=== PATIENT | male | born 1980 | race Caucasian/White ===

== ENCOUNTER 2018-07-14 10:44 | Emergency (ER) | payer MEDICARE, OTHER ==
--- NOTE | 2018-07-14 11:17 | ER Document Report ---
ED Medical Screen (RME) - General Chief Complaint: Anxiety Stated Complaint: ANXIETY Time Seen by Provider: 07/14/18 11:15 Mode of Arrival: Ambulatory Information source: Patient, Relative Notes: This is a 37-year-old man with a history of PTSD, depression who was brought into the emergency room severely depressed. Patient is crying in triage. He is accompanied by his who states that he was started on medicines in the last 2 weeks but he has gotten significantly worse. TRAVEL OUTSIDE OF THE U.S. IN LAST 30 DAYS: No - Related Data Allergies/Adverse Reactions: codeine Allergy (Verified 07/14/18 11:13) Physical Exam - Vital signs Vitals: Temp Pulse Resp BP Pulse Ox 98 F 81 18 125/86 H 98 07/14/18 10:56 07/14/18 10:56 07/14/18 10:56 07/14/18 10:56 07/14/18 10:56 Course - Vital Signs Vital signs: Temp Pulse Resp BP Pulse Ox 98 F 81 18 125/86 H 98 07/14/18 10:56 07/14/18 10:56 07/14/18 10:56 07/14/18 10:56 07/14/18 10:56
[2018-07-14 11:54] LABS: ABSOLUTE LYMPHOCYTES (AUTO) 1.5 10^3/uL (0.5-4.7); ABSOLUTE MONOCYTES (AUTO) 0.4 10^3/uL (0.1-1.4); ABSOLUTE NEUT (AUTO) 5.6 10^3/uL (1.7-8.2); BASOPHILS % (AUTO) 0.3 % (0-2); EOSINOPHILS % (AUTO) 0.3 % (0-6); HEMOGLOBIN 16.4 g/dL (13.5-17.0); LYMPHOCYTES % (AUTO) 20.1 % (13-45); MEAN CORPUSCULAR HEMOGLOBIN 29.3 pg (27.0-33.4); MEAN CORPUSCULAR HGB CONC 34.1 g/dL (32.0-36.0); MEAN CORPUSCULAR VOLUME 86 fl (80-97); MONOCYTES % (AUTO) 5.2 % (3-13); PLATELET COUNT 239 10^3/uL (150-450); RED BLOOD COUNT 5.59 10^6/uL (4.35-5.55); RED CELL DISTRIBUTION WIDTH 13.3 % (11.5-14.0); SEGMENTED NEUTROPHILS % (AUTO) 74.1 % (42-78); TOTAL CELLS COUNTED % (AUTO) 100 %; WHITE BLOOD COUNT 7.6 10^3/uL (4.0-10.5)
[2018-07-14 11:56] LABS: APPEARANCE,URINE CLEAR; BILIRUBIN,URINE NEGATIVE (NEGATIVE); COLOR,URINE STRAW; GLUCOSE, URINE NEGATIVE (NEGATIVE); KETONES,URINE 20 mg/dL (NEGATIVE); LEUKOCYTE ESTERASE,URINE NEGATIVE (NEGATIVE); NITRITE,URINE NEGATIVE (NEGATIVE); PROTEIN,URINE NEGATIVE (NEGATIVE); URINE SPECIFIC GRAVITY 1.004; UROBILINOGEN,URINE NEGATIVE mg/dL (<2.0)
[2018-07-14 12:15] LABS: URINE AMPHETAMINES SCREEN NEGATIVE; URINE BARBITURATES SCREEN NEGATIVE; URINE BENZODIAZEPINES SCREEN NEGATIVE; URINE COCAINE SCREEN NEGATIVE; URINE MARIJUANA (THC) SCREEN UNCONFIRMED POSITIVE; URINE METHADONE SCREEN NEGATIVE; URINE PHENCYCLIDINE SCREEN NEGATIVE
[2018-07-14 12:18] LABS: ALANINE AMINOTRANSFERASE 21 U/L (21-72); ALBUMIN 5.1 g/dL (3.5-5.0); ALKALINE PHOSPHATASE 112 U/L (38-126); ANION GAP 11 (5-19); ASPARTATE AMINO TRANSFERASE 19 U/L (17-59); BILIRUBIN,DIRECT 0.3 mg/dL (0.0-0.4); BILIRUBIN,TOTAL 0.8 mg/dL (0.2-1.3); BLOOD UREA NITROGEN 12 mg/dL (7-20); CARBON DIOXIDE 25 mmol/L (22-30); CHLORIDE 106 mmol/L (98-107); GLUCOSE 98 mg/dL (75-110); POTASSIUM 4.6 mmol/L (3.6-5.0); SODIUM 141.8 mmol/L (137-145); TOTAL PROTEIN 7.6 g/dL (6.3-8.2)
--- NOTE | 2018-07-14 12:23 | ER Document Report ---
Addendum entered and electronically signed by HARSHA HERRERA LCSWA 07/15/18 09:58: Discharge - Discharge Clinical Impression: Suicidal ideation, PTSD (post-traumatic stress disorder) Condition: Stable Disposition: HOME, SELF-CARE Instructions: Anxiety ([facility]) Additional Instructions: You have been evaluated both medical and behavioral health teams have been deemed appropriate for discharge. Medication changes have been conducted. Please discontinue your home medications of Adderall and Marinol. You have been provided prescriptions for Effexor 37.5 mg twice daily, BuSpar 10 mg twice daily, Zyprexa 2.5 mg twice daily and clonidine 0.1 mg nightly; please take as directed. You are recommended to continue outpatient therapeutic services with the local [place] and medication management with [facility]. Post-Traumatic Stress Disorder You seem to have post-traumatic stress disorder (PTSD). PTSD can cause chronic anxiety, sleeping problems, social withdrawal, and drug abuse. It can occur following a traumatic personal experience such as an accident, rape, assault, or of a loved one, or after experiencing a war or natural disaster. Symptoms may be delayed for days or even years. Emotional numbing, the inability to express grief, is usually the earliest sign. There may be apathy or agitation, aggression, and inability to perform ordinary tasks. Often there are frightening nightmares and sudden, intruding memories of the trauma. Panic attacks and feelings of guilt are common. Alcohol and drug use make post- traumatic stress symptoms worse. Medication may be temporarily necessary to combat anxiety, panic attacks, and depression. Medicine should not be considered a "cure." You must deal with the trauma and prepare to go on. Group therapy is often helpful. This helps you "talk through" the problem with others who share your symptoms. We can provide you with an appropriate referral. AT ANY TIME, IF YOUR SYMPTOMS CHANGE SIGNIFICANTLY OR WORSEN OR YOU DEVELOP NEW SYMPTOMS, RETURN TO THE EMERGENCY DEPARTMENT IMMEDIATELY FOR RE-EVALUATION. Referrals: [facility] [Outside] - Follow up as needed [facility] [Provider Group] - Follow up in 3-5 days [facility] [Provider Group] - Follow up in 3-5 days Original Note: ED General - General Mode of Arrival: Ambulatory TRAVEL OUTSIDE OF THE U.S. IN LAST 30 DAYS: No <VENKAT GREEN - Last Filed: 07/14/18 20:01> <HARSHA HERRERA - Last Filed: 07/15/18 09:52> <TIFFANIE FULTON - Last Filed: 07/15/18 10:15> - General Chief Complaint: Anxiety Stated Complaint: ANXIETY Time Seen by Provider: 07/14/18 11:15 Primary Care Provider: [facility] [Provider Group] - Follow up in 3-5 days [facility] [Provider Group] - Follow up in 3-5 days [facility] [Outside] - Follow up as needed - [facility] Notes: 37-year-old male presents ED for evaluation of suicidal ideation, patient appears to be distraught. Patient does not have a suicidal plan, denies any homicidal ideation. is at bedside. Does appear to be upset at this time. Awaiting for mental health evaluation. Denies fevers, chills, chest pain,pal pitations, shortness of breath, dyspnea, nausea, vomiting, diarrhea, abdominal pain, hematuria,blurred vision, double vision, loss of vision, speech changes, LH, dizziness, syncope, headaches, neck pain, weakness, bowel or bladder dysfunction, saddle anesthesia, numbness or tingling in bilateral upper or lower extremities equally, muscle paralysis, weakness in bilateral upper or lower extremities equally or rash. (VENKAT GREEN) - Related Data Allergies/Adverse Reactions: codeine Allergy (Verified 07/14/18 11:13) Past Medical History - General Information source: Patient, Relative - Social History Smoking Status: Never Smoker Chew tobacco use (# tins/day): Yes Frequency of alcohol use: None Drug Abuse: Marijuana Family History: Reviewed & Not Pertinent Patient has suicidal ideation: No Patient has homicidal ideation: No Renal/ Medical History: Denies: Hx Peritoneal Dialysis Psychiatric Medical History: Reports: Hx Depression Past Surgical History: Reports: Hx Genitourinary Surgery - vasectomy, Hx Tonsillectomy <VENKAT GREEN - Last Filed: 07/14/18 20:01> Review of Systems - Review of Systems Constitutional: No symptoms reported EENT: No symptoms reported Cardiovascular: No symptoms reported Respiratory: No symptoms reported Gastrointestinal: No symptoms reported Genitourinary: No symptoms reported Male Genitourinary: No symptoms reported Musculoskeletal: No symptoms reported Skin: No symptoms reported Hematologic/Lymphatic: No symptoms reported Neurological/Psychological: Suicidal ideation <VENKAT GREEN - Last Filed: 07/14/18 20:01> Physical Exam <VENKAT GREEN - Last Filed: 07/14/18 20:01> - Vital signs Vitals: Temp Pulse Resp BP Pulse Ox 98 F 81 18 125/86 H 98 07/14/18 10:56 07/14/18 10:56 07/14/18 10:56 07/14/18 10:56 07/14/18 10:56 - Notes Notes: PHYSICAL EXAMINATION: GENERAL: Well-appearing, well-nourished and in no acute distress. HEAD: Atraumatic, normocephalic. EYES: Pupils equal round and reactive to light, extraocular movements intact, sclera anicteric, conjunctiva are normal. ENT: Nares patent, oropharynx clear without exudates. Moist mucous membranes. NECK: Normal range of motion, supple without lymphadenopathy LUNGS: Breath sounds clear to auscultation bilaterally and equal. No wheezes rales or rhonchi. HEART: Regular rate and rhythm without murmurs ABDOMEN: Soft, nontender, nondistended abdomen. No guarding, no rebound. No masses appreciated. Musculoskeletal: Normal range of motion, no pitting or edema. No cyanosis. NEUROLOGICAL: Cranial nerves grossly intact. Normal speech, normal gait. Ria l sensory, motor exams PSYCH: She is emotional, crying, agressive SKIN: Warm, Dry, normal turgor, no rashes or lesions noted. (VENKAT GREEN) Course - Laboratory Result Diagrams: 07/14/18 11:32 07/14/18 11:32 <VENKAT GREEN - Last Filed: 07/14/18 20:01> - Laboratory Result Diagrams: 07/14/18 11:32 07/14/18 11:32 <TIFFANIE FULTON - Last Filed: 07/15/18 10:15> - Re-evaluation Re-evalutation: 07/14/18 20:03 Febrile vitals stable and patient is noticeably upset. CBC negative for leukocytosis or anemia, CMP negative for hepatic or renal dysfunction, urinalysis unremarkable, patient does show a positive for marijuana, tox screen otherwise unremarkable. Mental health at bedside, patient will be asked to see for suicidal ideation. Patient agreeable with this plan of care. On reevaluation patient does appear to be calmer, no acute distress. Multiple reevaluation patient appears to be stable. Disposition of CARINE clay at 1930 (VENKAT GREEN) - Vital Signs Vital signs: Temp Pulse Resp BP Pulse Ox 98.3 F 74 18 129/73 H 100 07/15/18 06:39 07/15/18 06:39 07/15/18 06:39 07/15/18 06:39 07/15/18 06:39 - Laboratory Laboratory results interpreted by me: 07/14/18 07/14/18 07/14/18 11:32 11:32 11:32 RBC 5.59 H Albumin 5.1 H Urine Ketones 20 H Salicylates < 1.0 L Acetaminophen < 10 L Discharge <VENKAT GREEN - Last Filed: 07/14/18 20:01> <HARSHA HERRERA - Last Filed: 07/15/18 09:52> <TIFFANIE FULTON - Last Filed: 07/15/18 10:15> - Discharge Clinical Impression: Suicidal ideation, PTSD (post-traumatic stress disorder) Condition: Stable Disposition: HOME, SELF-CARE Instructions: Anxiety ([facility]) Additional Instructions: You have been evaluated both medical and behavioral health teams have been deeme d appropriate for discharge. Medication changes have been conducted. Please discontinue your home medications of Adderall and Marinol. You have been provided prescriptions for Effexor 37.5 mg twice daily, BuSpar 10 mg twice daily, Zyprexa 2.5 mg twice daily and clonidine 0.1 mg nightly; please take as directed. You are recommended to continue outpatient [facility] the [facility] and [facility] with [facility]. Post-Traumatic Stress Disorder You seem to have post-traumatic stress disorder (PTSD). PTSD can cause chronic anxiety, sleeping problems, social withdrawal, and drug abuse. It can occur following a traumatic personal experience such as an accident, rape, as sault, or of a loved one, or after experiencing a war or natural disaster. Symptoms may be delayed for days or even years. Emotional numbing, the inability to express grief, is usually the earliest sign. There may be apathy or agitation, aggression, and inability to perform ordinary tasks. Often there are frightening nightmares and sudden, intruding memories of the trauma. Panic attacks and feelings of guilt are common. Alcohol and drug use make post- traumatic stress symptoms worse. Medication may be temporarily necessary to combat anxiety, panic attacks, and depression. Medicine should not be considered a "cure." You must deal with the trauma and prepare to go on. Group therapy is often helpful. This helps you "talk through" the problem with others who share your symptoms. We can provide you with an appropriate referral. AT ANY TIME, IF YOUR SYMPTOMS CHANGE SIGNIFICANTLY OR WORSEN OR YOU DEVELOP NEW SYMPTOMS, RETURN TO THE EMERGENCY DEPARTMENT IMMEDIATELY FOR RE-EVALUATION. Prescriptions: Clonidine HCl [Catapres 0.1 mg Tablet] 0.1 mg PO QHS #7 tablet Buspirone HCl [Buspar 10 mg Tablet] 10 mg PO BID #14 tablet Olanzapine [Zyprexa 2.5 Mg Tablet] 2.5 mg PO BID #14 tablet Venlafaxine HCl ER [Effexor Xr 37.5 mg Cap.sr] 37.5 mg PO BID #14 cap.sr.24h Referrals: [facility] [Provider Group] - Follow up in 3-5 days [facility] [Provider Group] - Follow up in 3-5 days [facility] [Outside] - Follow up as needed
[2018-07-14 12:24] LABS: ACETAMINOPHEN < 10 ug/mL (10-30); ALCOHOL < 10 mg/dL (NONE DETECTED); SALICYLATE < 1.0 mg/dL (2.0-20.0)
[2018-07-14] MEDS ORDERED: VENLAFAXINE HCL 37.5 MG CAP.SR.24H PO SCH (14:22)
[2018-07-14] MEDS ORDERED: OLANZAPINE 2.5 MG TABLET PO SCH (14:23)
[2018-07-14] MEDS: BUSPIRONE HCL 10 MG TABLET PO SCH ×2 (14:35→17:06)
--- NOTE | 2018-07-14 15:13 | PSYCHOLOGICAL NOTE ---
Psych Note - Psych Note Date seen by psych provider: 07/14/18 Time seen by psych provider: 13:10 Psych Note: Reason for Consult: Anxiety Patient's , Kristen, at bedside per patient's request This is a 37-year-old man with a history of PTSD, depression who was brought into the emergency room severely depressed. Patient is crying in triage. He is accompanied by his who states that he was started on medicines in the last 2 weeks but he has gotten significantly worse. Upon entering the room clinician notes patient's is crying. When asked what happened, she reports she has been trying to keep it together but the patient has been saying mean things to her. Patient calmly denies this with no emotion. She discloses that the patient just informed her that when they leave the hospital he will be leaving [place] for good. Patient is then noted to state "I asked if he wanted to come to." She disclosed that they have been for 13 years. She states that she knows that the patient does not want to leave her that he just wants to leave however he does not seem to understand that no matter where he goes he is going to feel the same way. Patient discloses that he was recently started on Adderall and Marinol for his PTSD. He reports that he feels he has gotten much worse and has been crying nonstop. When asked about any other substance use, he reports he uses marijuana; last use last night. He stated he wants to "leave [place];" when asked, he paused and then stated "because I don't like the rainy weather." Patient disclosed that he "knows" that his "friends, doctors, and... people are out to get me... they are all in on it...I don't trust medical doctors." He reports he does not want to be on any medication. Patient is alert and orientated to person, place, time and circumstance. Patient reports mood is dysphoric and is tearful however affect is flat. Patient has good eye contact however it appears as if the patient is looking right through clinician rather than at clinician. Patient denies suicidal and homicidal ideation. Patient vocalizes delusions of paranoia. Thought content is organized and linear. Intellectual abilities appear to be within the average range. Attention and concentration are fair. Insight, judgment, impulse control are poor. Clinician spoke with patient's to explain IVC process. Patient attempted to leave and security was called. Patient became very defensive started to posture aggressively and told security it would take all of them to take him down. Clinician was able to continue speaking with patient; he ultimately calmed and complied with requests. Patient's is very tearful and reports she feels that they have been taken advantage of and that he is going to be forced to take medications he does not want to take. Clinician explained concerns of patient's presentation and needing to ensure the patient's safety and that of others. She reports that staying will make him worse and that he will have to come home at some point to her and he will be upset about the events. She reports she feels he is not a danger to himself; "He would never do anything to hurt himself...I know that is what everyone says, but he wont." Medication recommendations per [facility] s contracted psychiatrist Dr. Angelo REINOSO are as follows please stop all medications of Adderall and Marinol please start Effexor 37.5 mg twice daily BuSpar 10 mg twice daily Zyprexa 2.5 mg twice daily clonidine 0.1 mg nightly 309.81 (F43.10) posttraumatic stress disorder per history provided by patient 311 (F32.9) unspecified depressive disorder Impression\\plan: Patient is recommended for IVC. Patient is presenting tearful with flat affect. Patient is disclosing thoughts of paranoia and demonstrating poor insight and judgment. Patient's eye contact is poor and it appears as if the patient is looking right through clinician when talking. Upon entering the room clinician notes patient's is crying. When asked what happened she reports that the patient just randomly stated that upon discharge from the hospital he will be leaving [place] for good. Patient is noted to have recently started medications of Adderall and Marinol within the last 2 weeks. Medication recommendations have been provided. Patient will be re-evaluated. Dr. Carpenter was consulted and the care management this patient; attending physicians in agreement with recommendations and disposition.
--- NOTE | 2018-07-14 21:06 | EKG REPORT ---
SEVERITY:- NORMAL ECG - SINUS RHYTHM : Confirmed by: Oly Gurrola MD 14-Jul-2018 21:05:54
[2018-07-14] MEDS: OLANZAPINE 2.5 MG TABLET PO SCH (21:20)
[2018-07-14] MEDS: VENLAFAXINE HCL 37.5 MG CAP.SR.24H PO SCH (21:20)
--- NOTE | 2018-07-15 10:20 | ER Document Report ---
Doctor's Note Notes: 07/15/18 10:19 Rounds: Chart reviewed and patient interviewed. Patient being evaluated for PTSD and depression and suicidal ideation. Patient says he is feeling better than when he came in last night. Vital signs are all normal. Lab studies were normal with the exception of being positive for marijuana on drug screen. Patient appears to be medically stable for transfer or discharge. Zeny Schaffer MD
[2018-07-15] MEDS: BUSPIRONE HCL 10 MG TABLET PO SCH (10:53)
[2018-07-15] MEDS: OLANZAPINE 2.5 MG TABLET PO SCH (10:54)
[2018-07-15] MEDS: VENLAFAXINE HCL 37.5 MG CAP.SR.24H PO SCH (10:54)
[2018-07-15 10:59] VITALS: BP 122/67
--- NOTE | 2018-07-15 14:19 | PSYCHOLOGICAL NOTE ---
Psych Note - Psych Note Date seen by psych provider: 07/15/18 Time seen by psych provider: 09:00 Psych Note: Reason for Consult: Anxiety Patient's , Kristen, at bedside per patient's request This is a 37-year-old man with a history of PTSD, depression who was brought into the emergency room severely depressed. Patient is crying in triage. He is accompanied by his who states that he was started on medicines in the last 2 weeks but he has gotten significantly worse. Check in conducted with patient Patient's mood is euthymic with congruent affect as evidenced by smiling and engaging with clinician. Patient sitting up in the bed sitting crosslegged, has congruent affect to conversations, and openly discusses his thoughts and feelings. Patient makes good eye contact and conversational speech is within normal rate tone and prosody (ie patient is not longer presenting flat). He states that he feels much more calm today and understands why he had to stay; "I knew it was going to happen when I came in...I needed it...I was just...I don't know, just overwhelming." He reports that he was just very concerned about security and thought he would be treated poorly. He discloses he is actively engaged with the local [place] [facility] in both individual and group therapy. He reports that he is not somebody who would ever harm himself and reports that that is a topic of discussion multiple times with in his therapy. He states that he has seen the statistics that if you harm yourself your loved ones have a higher chance of harming themselves. He discloses he would never want his children to do something like that. Patient discloses that he knows that yesterday he had stated that he wanted to leave [place] but reports that this has been a conversation is had with his multiple times in the past however he feels that she is not really hearing him. 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 HE confirms he has a strong support system with both his , parents (his parent's drove overnight from [place] when being notified the patient was in the hospital), children, and friends. He reports he has little interest in social media and states if he wants to keep up with a friend he will ups driver the phone and call. Clinician conducted psychoeducation on the importance of conducted self evaluations on possible isolating and understanding symptoms of PTSD to ensure you are actively engaging in therapeutic services to help with copping and understanding triggers. Patient agrees to allow his to control the home weapon so he does not have access while going through medication changes. Patient confirms he will continue engaging with both individual and group therapeutic services and to return immediately if he feels mood lability, irritability, or numbness of motion returns. Medication recommendations per [facility] s contracted psychiatrist Dr. Angelo REINOSO are as follows please stop all medications of Adderall and Marinol please start Effexor 37.5 mg twice daily BuSpar 10 mg twice daily Zyprexa 2.5 mg twice daily clonidine 0.1 mg nightly 309.81 (F43.10) posttraumatic stress disorder per history provided by patient 311 (F32.9) unspecified depressive disorder Impression\\plan: Patient is recommended for rescind of IVC and is cleared from acute psychiatric services. Medication adjustments have been conducted and patient's presentation has greatly improved. Currently it is believed the patient's previous medications caused an interaction which resulted in mood lability increased depression and some emotional numbness. Patient actively engaged with clinician as evidenced by discussing triggers, symptoms, and coping skills. Patient demonstrated forward thinking when discussing plans for the future i.e. 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 Patient has a strong support network with family as evidenced by both patient's mother and father driving in from [place] when finding out the patient was in the hospital. All agree to be part of patient's plan of care to ensure the does not have access to medications weapons and follows through with mental health recommendations. Patient is recommended to continue therapeutic services in the form of both individual and group therapy through the [place] and to receive medication management through [facility]. Both the [place] and [facility] have been contacted by this behavior health team for continuity of care and to notify change of medications. Dr. Carpenter was consulted and the care management this patient; attending physicians in agreement with recommendations and disposition.
== END 2018-07-15 10:59 | disposition home or self-care (01) ==
LOC: ER 10:44
DX: F41.9 Anxiety disorder, unspecified (principal); F43.10 Post-traumatic stress disorder, unspecified; F32.9 Major depressive disorder, single episode, unspecified; Z88.6 Allergy status to analgesic agent; R45.851 Suicidal ideations
CPT/HCPCS: 93005; 99284; 36415; 80307 ×4; 84443; 85025; 80053; 81001; 93010; A9270 ×6; J3490

== ENCOUNTER 2018-07-17 12:02 | Emergency (ER) | payer MEDICARE, OTHER ==
--- NOTE | 2018-07-17 12:37 | ER Document Report ---
ED Medical Screen (RME) - General Chief Complaint: Suicidal Ideation Stated Complaint: PSYCH EVAL Time Seen by Provider: 07/17/18 12:33 Notes: 37-year-old male patient with depression and PTSD returns to the emergency room complaining of worsening of suicidal ideation. He was seen here on 07/14/2018, and discharged home medication changes on 07/15/2018. I have greeted and performed a rapid initial assessment of this patient. A comprehensive ED assessment and evaluation of the patient, analysis of test results and completion of the medical decision making process will be conducted by additional ED providers. TRAVEL OUTSIDE OF THE [place] IN LAST 30 DAYS: No - Related Data Allergies/Adverse Reactions: codeine Allergy (Verified 07/17/18 12:18) Past Medical History Renal/ Medical History: Denies: Hx Peritoneal Dialysis Psychiatric Medical History: Reports: Hx Depression Past Surgical History: Reports: Hx Genitourinary Surgery - vasectomy, Hx Tonsillectomy Physical Exam - Vital signs Vitals: Temp Pulse Resp BP Pulse Ox 98.5 F 89 18 133/92 H 99 07/17/18 12:28 07/17/18 12:28 07/17/18 12:28 07/17/18 12:28 07/17/18 12:28 Course - Vital Signs Vital signs: Temp Pulse Resp BP Pulse Ox 98.5 F 89 18 133/92 H 99 07/17/18 12:28 07/17/18 12:28 07/17/18 12:28 07/17/18 12:28 07/17/18 12:28
[2018-07-17 13:01] LABS: ABSOLUTE EOSINOPHILS # (AUTO) 0.1 10^3/uL (0.0-0.6); ABSOLUTE LYMPHOCYTES (AUTO) 1.5 10^3/uL (0.5-4.7); ABSOLUTE MONOCYTES (AUTO) 0.4 10^3/uL (0.1-1.4); ABSOLUTE NEUT (AUTO) 5.3 10^3/uL (1.7-8.2); BASOPHILS % (AUTO) 0.4 % (0-2); EOSINOPHILS % (AUTO) 0.9 % (0-6); HEMATOCRIT 47.4 % (37.9-51.0); HEMOGLOBIN 16.1 g/dL (13.5-17.0); MEAN CORPUSCULAR HEMOGLOBIN 29.1 pg (27.0-33.4); MEAN CORPUSCULAR HGB CONC 33.9 g/dL (32.0-36.0); MEAN CORPUSCULAR VOLUME 86 fl (80-97); MONOCYTES % (AUTO) 4.9 % (3-13); PLATELET COUNT 230 10^3/uL (150-450); RED BLOOD COUNT 5.51 10^6/uL (4.35-5.55); RED CELL DISTRIBUTION WIDTH 13.5 % (11.5-14.0); SEGMENTED NEUTROPHILS % (AUTO) 72.8 % (42-78); TOTAL CELLS COUNTED % (AUTO) 100 %; WHITE BLOOD COUNT 7.2 10^3/uL (4.0-10.5)
[2018-07-17 13:07] LABS: APPEARANCE,URINE CLEAR; BILIRUBIN,URINE NEGATIVE (NEGATIVE); COLOR,URINE YELLOW; GLUCOSE, URINE NEGATIVE (NEGATIVE); KETONES,URINE NEGATIVE (NEGATIVE); LEUKOCYTE ESTERASE,URINE NEGATIVE (NEGATIVE); NITRITE,URINE NEGATIVE (NEGATIVE); PROTEIN,URINE NEGATIVE (NEGATIVE); URINE SPECIFIC GRAVITY 1.008; UROBILINOGEN,URINE NEGATIVE mg/dL (<2.0)
[2018-07-17 13:21] LABS: ALANINE AMINOTRANSFERASE 27 U/L (21-72); ALKALINE PHOSPHATASE 106 U/L (38-126); ANION GAP 8 (5-19); ASPARTATE AMINO TRANSFERASE 21 U/L (17-59); BILIRUBIN,DIRECT 0.2 mg/dL (0.0-0.4); BILIRUBIN,TOTAL 0.4 mg/dL (0.2-1.3); BLOOD UREA NITROGEN 14 mg/dL (7-20); CALCIUM 9.7 mg/dL (8.4-10.2); CARBON DIOXIDE 30 mmol/L (22-30); CHLORIDE 105 mmol/L (98-107); GLUCOSE 93 mg/dL (75-110); POTASSIUM 4.5 mmol/L (3.6-5.0); SODIUM 142.7 mmol/L (137-145); TOTAL PROTEIN 7.3 g/dL (6.3-8.2)
[2018-07-17 13:22] LABS: URINE AMPHETAMINES SCREEN NEGATIVE; URINE BARBITURATES SCREEN NEGATIVE; URINE BENZODIAZEPINES SCREEN NEGATIVE; URINE COCAINE SCREEN NEGATIVE; URINE MARIJUANA (THC) SCREEN UNCONFIRMED POSITIVE; URINE METHADONE SCREEN NEGATIVE; URINE PHENCYCLIDINE SCREEN NEGATIVE
[2018-07-17 13:23] LABS: ACETAMINOPHEN < 10 ug/mL (10-30); ALCOHOL < 10 mg/dL (NONE DETECTED); SALICYLATE < 1.0 mg/dL (2.0-20.0)
[2018-07-17] MEDS ORDERED: ACETAMINOPHEN 325 MG TABLET PO ONE (13:59)
[2018-07-17] MEDS ORDERED: OLANZAPINE 2.5 MG TABLET PO ONE (13:59)
[2018-07-17] MEDS ORDERED: KETOROLAC TROMETHAMINE 60 MG/2 ML SDV IM ONE (13:59)
--- NOTE | 2018-07-17 15:07 | ER Document Report ---
Addendum entered and electronically signed by LURDES POWELL LPCA 07/20/18 11:03: Discharge - Discharge Clinical Impression: Suicidal ideation, PTSD (post-traumatic stress disorder) Condition: Stable Disposition: HOME, SELF-CARE Additional Instructions: You have been evaluated and assessed at [facility] Emergency Department by both the medical and behavioral health teams after presenting for suicidal ideation and are now deemed appropriate for discharge. While in the ED, you received an initial medical screening, lab work, EKG, medications, direct staff observation, clinical evaluation, physician assessment, and outpatient resources. You were cleared from both services and record review revealed a history of suicidal id eation and PTSD. You are encouraged to develop positive coping skills for when these crisis situations arise. You are encouraged to to follow up with your outpatient mental health provider at [facility] for therapy and maintain compliance with your prescribed medication from the [place] clinic. DEPRESSION: Your evaluation reveals that you have mental depression. While symptoms may be vague, they often include disturbance of sleep, fatigue, loss of appetite, and general loss of interest in life. While depression may be a side effect of drugs, or a reaction to a major change in your life, many cases have no known cause. If depression is acute, and related to a major loss in your life, you can expect it to clear completely with time. If you have been depressed a long time, are prone to repeated bouts of depression or low mood, or have been thinking of suicide, get help. Depression can be treated with anti-depressant medication and counselling. Long-term depression will often take a few weeks to clear, even with appropriate medication. Follow-up care is important. SUICIDAL IDEATION: Suicidal ideation is a common medical term for thoughts about suicide, whic h may be as detailed as a formulated plan, without the suicidal act itself. Although most people who undergo suicidal ideation do not commit suicide, some go on to make suicide attempts. The range of suicidal ideation varies greatly from fleeting to detailed planning, role playing, and unsuccessful attempts. While thoughts about suicide are common, most people do not carry out serious actions to commit suicide. Based upon your evaluation and discussion with you, we do not believe you are currently at risk to act upon your thoughts of suicide. You have agreed to return to the Emergency Department, at any time, if you feel inclined to act upon your suicidal thoughts. FOLLOW-UP CARE: If you have been referred to a physician for follow-up care, call the physicians office for an appointment as you were instructed or within the next two days. If you experience worsening or a significant change in your symptoms, notify the physician immediately or return to the Emergency Department at any time for re-evaluation. Post-Traumatic Stress Disorder You seem to have post-traumatic stress disorder (PTSD). PTSD can cause chronic anxiety, sleeping problems, social withdrawal, and drug abuse. It can occur following a traumatic personal experience such as an accident, rape, assault, or of a loved one, or after experiencing a war or natural disaster. Symptoms may be delayed for days or even years. Emotional numbing, the inability to express grief, is usually the earliest sign. There may be apathy or agitation, aggression, and inability to perform ordinary tasks. Often there are frightening nightmares and sudden, intruding memories of the trauma. Panic attacks and feelings of guilt are common. Alcohol and drug use make post- traumatic stress symptoms worse. Medication may be temporarily necessary to combat anxiety, panic attacks, and depression. Medicine should not be considered a "cure." You must deal with the trauma and prepare to go on. Group therapy is often helpful. This helps you "talk through" the problem with others who share your symptoms. We can provide you with an appropriate referral. [facility] [[facility]] - Follow up as needed Original Note: ED General - General Chief Complaint: Suicidal Ideation Stated Complaint: PSYCH EVAL Time Seen by Provider: 07/17/18 12:33 TRAVEL OUTSIDE OF THE [place] IN LAST 30 DAYS: No - HPI Patient complains to provider of: Suicidal ideation depression anxiety Notes: Patient coming in for the above-stated symptoms. Patient was recently seen by our psychiatric team held overnight and had changes to medications. Patient states symptoms are not worse upon my evaluation patient states he does continue to smoke marijuana for his underlying anxiety. Patient states that he does not think medications are helping any his thoughts patient states he still has thoughts of harming himself thinking that will be better off without him. Patient is crying family at bedside states the crying episodes have been more frequent the last 2 weeks. States no events in the last 2 weeks to spur this patient denies any anniversaries of any traumatic events denies any fever chills nausea vomiting diarrhea states compliance medications at home - Related Data Allergies/Adverse Reactions: codeine Allergy (Verified 07/17/18 12:18) Past Medical History - Social History Smoking Status: Never Smoker Chew tobacco use (# tins/day): Yes - 0.25-0.5 tin/day Frequency of alcohol use: None Drug Abuse: Marijuana Family History: Reviewed & Not Pertinent Patient has suicidal ideation: Yes Patient has homicidal ideation: No Neurological Medical History: Reports: Hx Migraine - from photophobia Renal/ Medical History: Denies: Hx Peritoneal Dialysis Psychiatric Medical History: Reports: Hx Depression Past Surgical History: Reports: Hx Genitourinary Surgery - vasectomy, Hx Tonsillectomy Review of Systems - Review of Systems Constitutional: No symptoms reported EENT: No symptoms reported Cardiovascular: No symptoms reported Respiratory: No symptoms reported Gastrointestinal: No symptoms reported Genitourinary: No symptoms reported Male Genitourinary: No symptoms reported Musculoskeletal: No symptoms reported Skin: No symptoms reported Hematologic/Lymphatic: No symptoms reported Neurological/Psychological: Depression, Anxiety, Suicidal ideation -: Yes All other systems reviewed and negative Physical Exam - Vital signs Vitals: Temp Pulse Resp BP Pulse Ox 98.5 F 89 18 133/92 H 99 07/17/18 12:28 07/17/18 12:28 07/17/18 12:28 07/17/18 12:28 07/17/18 12:28 Interpretation: Normal - General General appearance: Appears well, Alert - HEENT Head: Normocephalic, Atraumatic Eyes: Normal Pupils: PERRL - Respiratory Respiratory status: No respiratory distress Chest status: Nontender Breath sounds: Normal Chest palpation: Normal - Cardiovascular Rhythm: Regular Heart sounds: Normal auscultation Murmur: No - Abdominal Inspection: Normal Distension: No distension Bowel sounds: Normal Tenderness: Nontender Organomegaly: No organomegaly - Back Back: Normal, Nontender - Extremities General upper extremity: Normal inspection, Nontender, Normal color, Normal ROM, Normal temperature General lower extremity: Normal inspection, Nontender, Normal color, Normal ROM, Normal temperature, Normal weight bearing. No: James's sign - Neurological Neuro grossly intact: Yes Cognition: Normal Orientation: AAOx4 [place] Coma Scale Eye Opening: Spontaneous [place] Coma Scale Verbal: Oriented [place] Coma Scale Motor: Obeys Commands [place] Coma Scale Total: 15 Speech: Normal Motor strength normal: LUE, RUE, LLE, RLE Sensory: Normal - Psychological Associated symptoms: Depressed, Tearful - Skin Skin Temperature: Warm Skin Moisture: Dry Skin Color: Normal Course - Re-evaluation Re-evalutation: 07/17/18 15:06 Patient medically clear for psychiatric evaluation 07/17/18 15:06 Will increase patient's Zyprexa will continue other home medications patient will be held overnight for psychiatric re-evaluation in the morning. - Vital Signs Vital signs: Temp Pulse Resp BP Pulse Ox 98.5 F 89 18 133/92 H 99 07/17/18 12:28 07/17/18 12:28 07/17/18 12:28 07/17/18 12:28 07/17/18 12:28 - Laboratory Result Diagrams: 07/17/18 12:40 07/17/18 12:40 Laboratory results interpreted by me: 07/17/18 12:40 Salicylates < 1.0 L Acetaminophen < 10 L Discharge - Discharge Clinical Impression: Suicidal ideation, PTSD (post-traumatic stress disorder) Condition: Fair Disposition: PSYCH HOSP/UNIT
--- NOTE | 2018-07-17 16:03 | PSYCHOLOGICAL NOTE ---
Psych Note - Psych Note Date seen by psych provider: 07/17/18 Time seen by psych provider: 13:40 Psych Note: Reason for Consult: suicidal ideation Patient's and mother at bedside per patient's request Patient presents to ED with complaints of SI thoughts and states he does have a plan. Patient with and mother at side, states he wants to come admit himself because he states he knows he is unsafe right now. Patient reports that he feels his medication has not taken effect yet and is started to having thoughts of harming himself. He feels that he needs to take steps to ensure safety and has come to [facility] ED voluntarily. Patient confirms he has continued to smoke marijuana the last time being this morning. Patient reports he is taking medications as directed. Patient's discloses that she has noticed that the patient seems to become very agitated and has significant difficulty controlling his mood almost exactly 10 hours after taking medications. She reports she is unsure of its that it is the wrong medications or that needs to be higher dose. She reports the patient has been taking medication at 5 PM and then again at 5 AM; both times just prior to taking the medication he is highly agitated and irritable with difficulty controlling his emotions i.e. crying. She discloses "he never had these problems until the Marinol." She confirms he has stopped taking the Marinol as directed during previous visit. Patient is alert and orientated to person, place, time and circumstance. Patient reports mood is dysphoric and is tearful however affect is flat. Patient has good eye contact. Patient endorses suicidal ideation with plan, denies and homicidal ideation. Delusions are absent and behaviour is congruent with an intact reality based presentation ie organized and linear thought processes. Intellectual abilities appear to be within the average range. Attention and concentration are fair. Insight, judgment, impulse control are poor. Medication recommendations per [facility] s contracted psychiatrist Dr. Angelo REINOSO are as follows please stop all medications of Adderall and Marinol please start Effexor 37.5 mg twice daily BuSpar 10 mg twice daily increase Zyprexa to 5 mg twice daily clonidine 0.1 mg nightly 309.81 (F43.10) posttraumatic stress disorder per history provided by patient 311 (F32.9) unspecified depressive disorder Impression\\plan: Patient is recommended for [facility] for overnight mental health observation. Patient previously had been put on Adderall and Marinol with negative results so was started on medications by this department on 07/14/2018. Clinician notes patient does have a strong support network with family. Patient shows strong insight and judgment in coming to [facility] for assistance however the concern is patient's inability to control his emotions and possibly his impulses. Patient reports new thoughts of suicidal ideation and reports having a plan however does not disclosed what the plan is. He continues to disclose difficulty with sleeping and having a migraine. Clinician conducted psychoeducation on the importance of not smoking marijuana. Medication adjustments have been conducted. Patient will be reevaluated. Dr. Carpenter was consulted and care management this patient; attending physicians in agreement with recommendations and disposition.
[2018-07-17] MEDS: VENLAFAXINE HCL 37.5 MG CAP.SR.24H PO SCH (18:17)
[2018-07-17] MEDS: OLANZAPINE 5 MG TABLET PO SCH (18:17)
[2018-07-17] MEDS: BUSPIRONE HCL 10 MG TABLET PO SCH (18:17)
[2018-07-17] MEDS ORDERED: BUTALB/ACETAMINOPHEN/CAFFEINE 1 TAB EACH PO ONE (20:28)
[2018-07-17] MEDS: CLONIDINE HCL 0.1 MG TABLET PO SCH (22:25)
--- NOTE | 2018-07-18 07:25 | EKG REPORT ---
SEVERITY:- NORMAL ECG - SINUS RHYTHM : Confirmed by: Oly Gurrola MD 18-Jul-2018 07:25:02
[2018-07-18] MEDS: VENLAFAXINE HCL 37.5 MG CAP.SR.24H PO SCH ×2 (09:12→17:34)
[2018-07-18] MEDS: OLANZAPINE 5 MG TABLET PO SCH ×2 (09:12→17:34)
[2018-07-18] MEDS: BUSPIRONE HCL 10 MG TABLET PO SCH ×2 (09:12→17:34)
[2018-07-18] MEDS ORDERED: SUMATRIPTAN SUCCINATE 100 MG TABLET PO ONE (09:45)
--- NOTE | 2018-07-18 09:46 | ER Document Report ---
Doctor's Note Notes: 07/18/18 09:39 Patient resting comfortably, no overnight issues room ported, is at bedside, he reports having a headache, history of migraine headaches, had a headache yesterday and received Toradol in the right upper arm, states he still feels pain at the site and is declining another dose of IM Toradol, states he t akes Imitrex and/or Maxalt at home when he has a similar headache but apparently was told yesterday that we do not have either of those medications on formulary here, I did call the pharmacy and check to ensure that we have Imitrex in-house, this was confirmed so the dose was ordered, he is also requesting to take a shower this morning which nursing staff will assist him with, otherwise he remained stable, with flat affect and depressed mood, discussion with mental health team indicates that patient requires remaining in the emergency department for further evaluation and treatment as he is not yet stabilized or cleared for discharge secondary to his continued depression with suicidal thoughts
--- NOTE | 2018-07-18 13:54 | PSYCHOLOGICAL NOTE ---
Psych Note - Psych Note Date seen by psych provider: 07/18/18 Time seen by psych provider: 15:00 Psych Note: Reason for consult: 1st re-evaluation, SI Contact Permissions: Kristen Fish is a 37 yo male vet who presents with concerns of SI after starting Marinol and Adderall. Patient discontinued these medications autonomously. Today he reports he is "better" but immediately starts crying. He denies current SI stating, "I love my and kids I don.t want to make them a statistic". He admits SI in past and love for his and children being a primary resiliency factor for him. He states he thought his anxiety was getting better when he was just smoking marijuana but didn't want to be doing something illegal so asked his doctor about Marinol and was started on this and Adderall. He reports feeling not himself and super depressed shortly thereafter so discontinued both and started having SI. Patient has chronic insomnia due to nightmares and reports interrupted sleep up last night with nightmares and sweating. Patient as well. is having difficulty eating due to his nerves. Patient is alert and oriented x 4. Mood is dysthymic with flat and tearful affect. Patient denies SI, HI, and AV/H, does not appear to be responding to internal stimuli, and no delusions were noted. Conversational speech was WNL for rate, tone, and prosody. Eye contact was poorly maintained. Thought processes were linear and organized. Intellectual abilities were estimated within the average range. Attention/concentration was WNL while, insight, judgment, and impulse control were poor. Diagnosis: 309.81 (F43.10) posttraumatic stress disorder per history provided by patient 311 (F32.9) unspecified depressive disorder Medication recommendations as per psychiatric provider, Dr. Stephens are as follows: Discontinue Adderall and Marinol Start Effexor 37.5 mg twice daily BuSpar 10 mg twice daily Increase Zyprexa to 5 mg twice daily clonidine 0.1 mg nightly Impression/Plan: Patient is recommended to maintain IVC due to risk of harm to self aeb patient is crying excessively and expressing shame/embarrassment, and hopelessness. Patient denies current suicidal thoughts but does "not feel safe" at this time. Provided psycho-education to patient about physiological responses to psychiatric medication; adjustments and abrupt cessations, normalized patient experience to help him reframe and let go of blame. Plan is to continue medica tion stabilization, further observation, and evaluation. Consulted Dr. Carpenter in the care and treatment of this patient and ED physician who is in agreement with disposition and recommendation.
[2018-07-18] MEDS: CLONIDINE HCL 0.1 MG TABLET PO SCH (22:11)
[2018-07-19] MEDS ORDERED: OLANZAPINE 5 MG TAB.RAPDIS PO ONE (02:14)
--- NOTE | 2018-07-19 09:11 | ER Document Report ---
Doctor's Note Notes: 07/19/18 09:11 Patient seen and evaluated by myself. No issues overnight per nursing. Patient's vital signs are stable. Patient brought to the emergency department for suicidal ideation and episodes of uncontrollable crying despite being on medication. Behavioral health saw and evaluated the patient. Adderall and Marinol were discontinued. Patient started on Effexor, BuSpar, clonidine. They increased his Zyprexa dosage. Patient continues to be labile with his emotions. Patient states that his suicidal ideations have resolved. Will continue to follow behavioral health recommendations. 07/19/18 09:55
[2018-07-19] MEDS: OLANZAPINE 5 MG TABLET PO SCH ×2 (09:16→18:15)
[2018-07-19] MEDS: BUSPIRONE HCL 10 MG TABLET PO SCH ×2 (09:16→18:15)
[2018-07-19] MEDS: VENLAFAXINE HCL 37.5 MG CAP.SR.24H PO SCH ×2 (09:16→18:15)
[2018-07-19] MEDS ORDERED: MELATONIN 5 MG TABLET PO SCH (22:00)
[2018-07-19] MEDS ORDERED: LIDOCAINE 5% (700 MG) TRANSDERMAL ADH..PATCH TP ONE (22:02)
[2018-07-19] MEDS ORDERED: DIPHENHYDRAMINE HCL 50 MG CAPSULE PO SCH (22:15)
[2018-07-19] MEDS ORDERED: DIPHENHYDRAMINE HCL 50 MG CAPSULE PO ONE (22:30)
[2018-07-20] MEDS ORDERED: ONDANSETRON 4 MG TAB.RAPDIS PO ONE (05:00)
[2018-07-20] MEDS: CLONIDINE HCL 0.1 MG TABLET PO SCH (05:04)
[2018-07-20] MEDS ORDERED: ONDANSETRON 4 MG TAB.RAPDIS PO SCH ×2 (06:00)
[2018-07-20] MEDS ORDERED: LIDOCAINE 5% (700 MG) TRANSDERMAL ADH..PATCH TP ONE (09:31)
--- NOTE | 2018-07-20 09:45 | ER Document Report ---
Doctor's Note Notes: 07/20/18 09:44 Patient resting comfortably on stretcher, states he has not yet had breakfast and requesting this at this time, also requesting a lidocaine patch for his back as it came off while he took a shower this morning, patient reveals he still having trouble sleeping and was told he would get something different for sleep last night but is unsure whether that happened, discussion with mental health team is that patient will likely be discharged home today with outpatient resources, patient is medically cleared for discharge or transfer once a formal decision is made Discharge - Discharge Clinical Impression: Suicidal ideation, PTSD (post-traumatic stress disorder) Condition: Stable Disposition: HOME, SELF-CARE Additional Instructions: You have been evaluated and assessed at [facility] Emergency Department by both the medical and behavioral health teams after presenting for suicidal ideation and are now deemed appropriate for discharge. While in the ED, you received an initial medical screening, lab work, EKG, medications, direct staff observation, clinical evaluation, physician assessment, and outpatient resources. You were cleared from both services and record review revealed a history of suicidal ideation and PTSD. You are encouraged to develop positive coping skills for when these crisis situations arise. You are encouraged to to follow up with you r outpatient mental health provider at [facility] for therapy and maintain [facility]. DEPRESSION: Your evaluation reveals that you have mental depression. While symptoms may be vague, they often include disturbance of sleep, fatigue, loss of appetite, and general loss of interest in life. While depression may be a side effect of drugs, or a reaction to a major change in your life, many cases have no known cause. If depression is acute, and related to a major loss in your life, you can expect it to clear completely with time. If you have been depressed a long time, are prone to repeated bouts of depression or low mood, or have been thinking of suicide, get help. Depression can be treated with anti-depressant medication and counselling. Long-term depression will often take a few weeks to clear, even with appropriate medication. Follow-up care is important. SUICIDAL IDEATION: Suicidal ideation is a common medical term for thoughts about suicide, which may be as detailed as a formulated plan, without the suicidal act itself. Although most people who undergo suicidal ideation do not commit suicide, some go on to make suicide attempts. The range of suicidal ideation varies greatly from fleeting to detailed planning, role playing, and unsuccessful attempts. While thoughts about suicide are common, most people do not carry out serious actions to commit suicide. Based upon your evaluation and discussion with you, we do not believe you are currently at risk to act upon your thoughts of suicide. You have agreed to return to the Emergency Department, at any time, if you feel inclined to act upon your suicidal thoughts. FOLLOW-UP CARE: If you have been referred to a physician for follow-up care, call the physicians office for an appointment as you were instructed or within the next two days. If you experience worsening or a significant change in your symptoms, notify the physician immediately or return to the Emergency Department at any time for re-evaluation. Post-Traumatic Stress Disorder You seem to have post-traumatic stress disorder (PTSD). PTSD can cause c hronic anxiety, sleeping problems, social withdrawal, and drug abuse. It can occur following a traumatic personal experience such as an accident, rape, assault, or of a loved one, or after experiencing a war or natural disaster. Symptoms may be delayed for days or even years. Emotional numbing, the inability to express grief, is usually the earliest sign. There may be apathy or agitation, aggression, and inability to perform ordinary tasks. Often there are frightening nightmares and sudden, intruding memories of the trauma. Panic attacks and feelings of guilt are common. Alcohol and drug use make post- traumatic stress symptoms worse. Medication may be temporarily necessary to combat anxiety, panic attacks, and depression. Medicine should not be considered a "cure." You must deal with the trauma and prepare to go on. Group therapy is often helpful. This helps you "talk through" the problem with others who share your symptoms. We can provide you with an appropriate referral. Prescriptions: Lidocaine [Lidoderm 5% (700 mg) Transdermal Patch] 1 patch TP DAILY #30 adh..patch Olanzapine [Zyprexa 5 mg Tablet] 5 mg PO Q12 #60 tablet Venlafaxine HCl ER [Effexor Xr 37.5 mg Cap.sr] 37.5 mg PO BID #60 cap.sr.24h [facility]: [facility] [Provider Group] - Follow up as needed
[2018-07-20] MEDS: OLANZAPINE 5 MG TABLET PO SCH (10:21)
[2018-07-20] MEDS: BUSPIRONE HCL 10 MG TABLET PO SCH (10:21)
[2018-07-20] MEDS: VENLAFAXINE HCL 37.5 MG CAP.SR.24H PO SCH (10:21)
[2018-07-20 12:00] VITALS: BP 128/78
--- NOTE | 2018-07-20 20:20 | PSYCHOLOGICAL NOTE ---
Psych Note - Psych Note Date seen by psych provider: 07/20/18 Time seen by psych provider: 07:15 Psych Note: Reason for consult: re-evaluation, Depression/SI Contact Permissions: Patient is a 37 yo male with PTSD who was self medicating on Marinol when he started having SI and discontinued the medication. Since then he has had difficulty regulating his emotions and struggled with depressive sx's such inability to stop crying, dysthymic mood, ruminating on his present emotional state with feelings of guilt and helplessness/hopelessness. Patient today reports that he is feeling sick to his stomach, has been throwing up and did not sleep through the night. He relays that his physical sx's are similar to DT's which he reports experiencing when he stopped using alcohol 4 years ago. Patient shares his rock bottom story and relays he didn't want his children to find him like he was that day. Discussed cannabis use as another avoidance technique that would slow his process of healing and patient vows to cease cannabis use. He also notes that he is feeling better, specifically, that he is better able to control his emotions. Patient denies SI or having a plan. He says, "I know it's not right/wouldn't do that to my and kids". He relays that he's been thinking about moving away from [place] because being so close to the triggers his PTSD sx's and shares how his friend writing a book about their experiences in [place] triggered him. He recounts three experiences in [place] which haunt him and wonders how other vets seem to not be as effected as him. Patient is alert and oriented x 4. Mood is dysthymic with intermittent tearful affect which was appropriate to context of discussion. Patient denies SI, HI, and AV/H, does not appear to be responding to internal stimuli, and no delusions were noted. Conversational speech was WNL for rate, tone, and prosody. Eye contact was maintained. Thought processes were linear, organized, and rational. Intellectual abilities were estimated within the average range. Attention/concentration was WNL while, insight, judgment, and impulse control were fair. Diagnosis: 309.81 (F43.10) posttraumatic stress disorder per history provided by patient 311 (F32.9) unspecified depressive disorder Medication recommendations as per psychiatric provider, Dr. Stephens are as follows: please stop all medications of Adderall and Marinol please start Effexor 37.5 mg twice daily BuSpar 10 mg twice daily increase Zyprexa to 5 mg twice daily clonidine 0.1 mg nightly Patient is psychiatrically clear from acute psychiatric services and recommended to discharge to home/self-care as there is no risk of harm to self aeb Patient denies SI and states he will return to the ED if he feels it's necessary. Patient is a 37 yo male suffering PTSD, medication adjustments, and possible withdrawal from a foreign substance in his cannabis. Patient resolves today to stop using cannabis and is future-focused on regaining his emotional health and stability for his family. Patient will discharge to his with plan for Patient to follow up at his regularly scheduled appointments at [facility] and the vet clinic and return to the ED or call [facility] if needed. Consulted Dr. Carpenter in the care and treatment of this patient and ED physician who is in agreement with disposition and recommendation.
[2018-07-20] MEDS ORDERED: DIPHENHYDRAMINE HCL 50 MG CAPSULE PO SCH (22:00)
--- NOTE | 2018-07-31 11:09 | PSYCHOLOGICAL NOTE ---
Psych Note - Psych Note Date seen by psych provider: 07/19/18 Time seen by psych provider: 10:50 Psych Note: Reason for Consult: suicidal ideation Patient presents to ED with complaints of SI thoughts and states he does have a plan. Patient with and mother at side, states he wants to come admit himself because he states he knows he is unsafe right now. Check in conducted with patient Patient is still have some difficulties controlling his emotions. Patient reports that his stomach has been upset and that he has not been eating. Clinician asked if he thought he could drink an Ensure to try to get something in his stomach. The patient has been suffering from nausea today and the hope would be that it would help to have something in his stomach other than medications. Patient agrees to try. Patient continues to worry the medications will not help him; clinician conducted psychoeducation. Diagnosis: 309.81 (F43.10) posttraumatic stress disorder per history provided by patient 311 (F32.9) unspecified depressive disorder Medication recommendations as per psychiatric provider, Dr. Stephens are as follows: Effexor 37.5 mg twice daily BuSpar 10 mg twice daily Zyprexa to 5 mg twice daily clonidine 0.1 mg nightly Impression/Plan:Patient is recommended to maintain IVC he continues to have difficulties controlling his emotions. Clinician provided psycho-education. Plan is to continue medication stabilization, further observation, and eval uation. Dr. Carpenter was consulted and the care management of this patient cervical attending physicians in agreement with recommendations and disposition.
== END 2018-07-20 11:55 | disposition home or self-care (01) ==
LOC: ER 12:02
DX: R45.851 Suicidal ideations (principal); F43.10 Post-traumatic stress disorder, unspecified; F32.9 Major depressive disorder, single episode, unspecified; Z88.6 Allergy status to analgesic agent
CPT/HCPCS: 93005; 99285; 96372; 36415; 80307 ×4; 85025; 80053; 81001; 93010; A9270 ×22; J1885; J3490; S0119

== ENCOUNTER 2018-07-21 07:23 | Inpatient (IN) | payer MEDICARE, OTHER ==
[2018-07-21] MEDS ORDERED: KETOROLAC TROMETHAMINE INJ/PF 30 MG/1 ML SDV IV ONE (08:02)
[2018-07-21] MEDS ORDERED: NORMAL SALINE 1000 ML 1,000 ML IV ONE (08:02)
[2018-07-21] MEDS ORDERED: ONDANSETRON HCL INJ/PF 4 MG/2 ML SDV IV ONE (08:02)
--- NOTE | 2018-07-21 08:05 | ER Document Report ---
ED General - General Chief Complaint: Possible Kidney Stone Stated Complaint: FLANK PAIN Time Seen by Provider: 07/21/18 07:48 Primary Care Provider: BE ALCALA MD [ACTIVE STAFF] - Follow up as needed Mode of Arrival: Ambulatory TRAVEL OUTSIDE OF THE [place] IN LAST 30 DAYS: No - HPI Notes: 37-year-old male with a history of PTSD and depression presents to the ED with complaints of right greater than left flank pain with vomiting that has been occurring for the last 2 days. Patient has been admitted twice in the last 4 days SI, PTSD and depression, was started on BuSpar, Effexor and Zyprexa as well as clonidine. Patient was discharged yesterday from [facility], BuSpar was discontinued patient states he has not been taking clonidine. Denies any history of renal injury or kidney stones. He denies seeing primary care for this issue. Has not tried any [id number] medications. is at bedside. Patient is denying any SI or homicidal ideation. Denies fevers, chills, chest pain,palpitations, shortness of breath, dyspnea, diarrhea, abdominal pain, hematuria,blurred vision, double vision, loss of vision, speech changes, LH, dizziness, syncope, headaches, wheezing, ST, URI, neck pain, weakness, bowel or bladder dysfunction, saddle anesthesia, numbness or tingling in bilateral upper or lower extremities equally, muscle paralysis, weakness in bilateral upper or lower extremities equally or rash. - Related Data Allergies/Adverse Reactions: codeine Allergy (Verified 07/17/18 12:18) Past Medical History - General Information source: Patient - Social History Smoking Status: Unknown if Ever Smoked Family History: Reviewed & Not Pertinent Neurological Medical History: Reports: Hx Migraine - from photophobia Renal/ Medical History: Denies: Hx Peritoneal Dialysis Psychiatric Medical History: Reports: Hx Depression Past Surgical History: Reports: Hx Genitourinary Surgery - vasectomy, Hx Tonsillectomy Review of Systems - Review of Systems Constitutional: See HPI EENT: No symptoms reported Cardiovascular: No symptoms reported Respiratory: No symptoms reported Gastrointestinal: See HPI Genitourinary: No symptoms reported Male Genitourinary: No symptoms reported Musculoskeletal: No symptoms reported Skin: No symptoms reported Hematologic/Lymphatic: No symptoms reported Neurological/Psychological: No symptoms reported Physical Exam - Vital signs Vitals: Temp Pulse Resp BP Pulse Ox 98.2 F 53 L 18 144/91 H 98 07/21/18 07:26 07/21/18 07:26 07/21/18 07:26 07/21/18 07:26 07/21/18 07:26 - Notes Notes: PHYSICAL EXAMINATION: GENERAL: Well-appearing, well-nourished and in mild distress HEAD: Atraumatic, normocephalic. EYES: Pupils equal round and reactive to light, extraocular movements intact, sclera anicteric, conjunctiva are normal. ENT: Nares patent, oropharynx clear without exudates. Moist mucous membranes. NECK: Normal range of motion, supple without lymphadenopathy LUNGS: Breath sounds clear to auscultation bilaterally and equal. No wheezes rales or rhonchi. HEART: Regular rate and rhythm without murmurs ABDOMEN: Soft, nontender, nondistended abdomen. No guarding, no rebound. No masses appreciated. Bilateral CVA tenderness, right greater than left. Musculoskeletal: Normal range of motion, no pitting or edema. No cyanosis. NEUROLOGICAL: Cranial nerves grossly intact. Normal speech, normal gait. Normal sensory, motor exams PSYCH: Normal mood, normal affect. SKIN: Warm, Dry, normal turgor, no rashes or lesions noted. Course - Re-evaluation Re-evalutation: -year-old male afebrile vitals stable no no distress after receiving IV fluids and Zofran. Creatinine today is 2.6 cm BUN of 27, creatinine on July 14 was 0.97 with a BUN of 12 patient was admitted for SI, repeat creatinine on July 17 was 1.19 with a BUN of 14, patient was discharged home, was taken off BuSpar patient states he is not taking clonidine, states he is taking the Effexor and Zyprexa. Patient CK today was 71, white blood cell count was 10, potassium was 4.3 today. Acute kidney injury likely related to vomiting and possibly intolerance to medications. Discussed findings Dr. Ricardo, grade 4 admission for AK I with IV hydration. Consulted with Dr. Lana Rizvi, medical hospitalist at 1045, will admit to medical services I. Patient agreeable to plan of care as well as agreeable with plan of care. All questions and concerns answered by this provider. - Vital Signs Vital signs: Temp Pulse Resp BP Pulse Ox 98.2 F 53 L 18 144/91 H 98 07/21/18 07:26 07/21/18 07:26 07/21/18 07:26 07/21/18 07:26 07/21/18 07:26 - Laboratory Result Diagrams: 07/21/18 08:07 07/21/18 08:07 Laboratory results interpreted by me: 07/21/18 07/21/18 07/21/18 08:07 08:07 08:07 Seg Neutrophils % 83.4 H Lymphocytes % 9.4 L Absolute Neutrophils 8.3 H BUN 27 H Creatinine 2.69 H Est GFR ( Amer) 33 L Est GFR (Non-Af Amer) 27 L Glucose 130 H AST 16 L ALT 19 L Urine Ketones TRACE H Urine Blood SMALL H Salicylates < 1.0 L Acetaminophen < 10 L Discharge - Discharge Clinical Impression: Acute renal injury, Vomiting Condition: Stable Disposition: ADMITTED INPATIENT Admitting Provider: Hospitalist Unit Admitted: Medical Floor Instructions: Vomiting ([facility]) Forms: Return to Work Referrals: BE ALCALA MD [ACTIVE STAFF] - Follow up as needed
[2018-07-21 08:28] LABS: APPEARANCE,URINE CLEAR; BILIRUBIN,URINE NEGATIVE (NEGATIVE); COLOR,URINE STRAW; GLUCOSE, URINE NEGATIVE (NEGATIVE); KETONES,URINE TRACE mg/dL (NEGATIVE); LEUKOCYTE ESTERASE,URINE NEGATIVE (NEGATIVE); NITRITE,URINE NEGATIVE (NEGATIVE); PROTEIN,URINE NEGATIVE (NEGATIVE); URINE SPECIFIC GRAVITY 1.004; UROBILINOGEN,URINE NEGATIVE mg/dL (<2.0)
[2018-07-21 08:30] LABS: ABSOLUTE LYMPHOCYTES (AUTO) 0.9 10^3/uL (0.5-4.7); ABSOLUTE MONOCYTES (AUTO) 0.6 10^3/uL (0.1-1.4); ABSOLUTE NEUT (AUTO) 8.3 10^3/uL (1.7-8.2); BASOPHILS % (AUTO) 0.3 % (0-2); EOSINOPHILS % (AUTO) 0.4 % (0-6); HEMATOCRIT 44.1 % (37.9-51.0); HEMOGLOBIN 15.2 g/dL (13.5-17.0); LYMPHOCYTES % (AUTO) 9.4 % (13-45); MEAN CORPUSCULAR HEMOGLOBIN 29.5 pg (27.0-33.4); MEAN CORPUSCULAR HGB CONC 34.4 g/dL (32.0-36.0); MEAN CORPUSCULAR VOLUME 86 fl (80-97); MONOCYTES % (AUTO) 6.5 % (3-13); PLATELET COUNT 186 10^3/uL (150-450); RED BLOOD COUNT 5.15 10^6/uL (4.35-5.55); SEGMENTED NEUTROPHILS % (AUTO) 83.4 % (42-78); TOTAL CELLS COUNTED % (AUTO) 100 %
[2018-07-21 08:42] LABS: URINE AMPHETAMINES SCREEN NEGATIVE; URINE BARBITURATES SCREEN UNCONFIRMED POSITIVE; URINE BENZODIAZEPINES SCREEN NEGATIVE; URINE COCAINE SCREEN NEGATIVE; URINE MARIJUANA (THC) SCREEN UNCONFIRMED POSITIVE; URINE METHADONE SCREEN NEGATIVE; URINE PHENCYCLIDINE SCREEN NEGATIVE
[2018-07-21 08:51] LABS: ALANINE AMINOTRANSFERASE 19 U/L (21-72); ALBUMIN 4.5 g/dL (3.5-5.0); ALKALINE PHOSPHATASE 101 U/L (38-126); ANION GAP 12 (5-19); ASPARTATE AMINO TRANSFERASE 16 U/L (17-59); BILIRUBIN,DIRECT 0.3 mg/dL (0.0-0.4); BILIRUBIN,TOTAL 0.6 mg/dL (0.2-1.3); BLOOD UREA NITROGEN 27 mg/dL (7-20); CALCIUM 9.2 mg/dL (8.4-10.2); CARBON DIOXIDE 26 mmol/L (22-30); CHLORIDE 103 mmol/L (98-107); GLUCOSE 130 mg/dL (75-110); LIPASE 69.6 U/L (23-300); POTASSIUM 4.3 mmol/L (3.6-5.0); TOTAL PROTEIN 6.8 g/dL (6.3-8.2)
[2018-07-21 08:52] LABS: ACETAMINOPHEN < 10 ug/mL (10-30); SALICYLATE < 1.0 mg/dL (2.0-20.0)
--- NOTE | 2018-07-21 09:18 | RADIOLOGY REPORT (SQ) ---
EXAM DESCRIPTION: CT ABD/PELVIS NO ORAL OR IV COMPLETED DATE/TIME: 07/21/2018 9:05 am REASON FOR STUDY: R>L flank pain w/ vomiting COMPARISON: None. TECHNIQUE: CT scan of the abdomen and pelvis performed without intravenous or oral contrast. Images reviewed with lung, soft tissue, and bone windows. Reconstructed coronal and sagittal MPR images revi ewed. All images stored on PACS. All CT scanners at this facility use dose modulation, iterative reconstruction, and/or weight based d osing when appropriate to reduce radiation dose to as low as reasonably achievable (ALARA). [facility]: Dose Right [facility]: CareDose [facility]: Dose Right [facility]: Teradose 4D [facility]: Smart Cubiez RADIATION DOSE: CT Rad equipment meets quality standard of care and radiation dose reduction techniq ues were employed. CTDIvol: 11.8 mGy. DLP: 656 mGy-cm.mGy. LIMITATIONS: None. FINDINGS: LOWER CHEST: No significant findings. No nodules or infiltrates. NON-CONTRASTED LIVER, SPLEEN, ADRENALS: Evaluation limited by lack of IV contrast. No identified sign ificant masses. PANCREAS: No masses. No peripancreatic inflammatory changes. GALLBLADDER: No identified stones by CT criteria. No inflammatory changes to suggest cholecystitis. RIGHT KIDNEY AND URETER: No suspicious masses. Assessment limited by lack of IV contrast. No signif icant calcifications. No hydronephrosis or hydroureter. LEFT KIDNEY AND URETER: No suspicious masses. Assessment limited by lack of IV contrast. No signifi cant calcifications. No hydronephrosis or hydroureter. AORTA AND RETROPERITONEUM: No aneurysm. No retroperitoneal masses or adenopathy. BOWEL AND PERITONEAL CAVITY: No obvious masses or inflammatory changes. No free fluid. APPENDIX: Normal. PELVIS, BLADDER, AND ABDOMINAL WALL:No abnormal masses. No free fluid. Bladder normal. BONES: No significant findings. OTHER: No other significant finding. IMPRESSION: No noncontrast CT findings to explain right-sided abdominal pain, nausea, or vomiting. No evidence of urinary tract calculus. Normal appendix. COMMENT: Quality ID # [id number]: Final reports with documentation of one or more dose reduction techniques (e.g., Automated exposure control, adjustment of the mA and/or kV according to patient size, use of iterative reconstruction technique) TECHNICAL DOCUMENTATION: JOB ID: [id number] [employer]- All Rights Reserved Reading location - IP/workstation name: [email or web address]
[2018-07-21] MEDS: RINGERS SOLUTION,LACTATED 1,000 ML IV PRN (09:51)
[2018-07-21] MEDS ORDERED: ENOXAPARIN SODIUM INJ 40 MG/0.4 ML DISP.SYRIN SUBCUT ONE (13:00)
[2018-07-21] MEDS: NORMAL SALINE 1000 ML 1,000 ML IV PRN ×2 (14:34→21:52)
--- NOTE | 2018-07-21 16:23 | PDOC H&P ---
History of Present Illness Admission Date/PCP: 07/21/18 11:31 History of Present Illness: TORO SAINZ is a 37 year old male who has history of PTSD and TBI. Patient was recently admitted to psych unit for suicidal ideation and was discharged yesterday. Apparently his medications were changed. He developed nausea and vomiting since last night. He could not eat or drink. He became dehydrated. He then presented to the emergency room. No other associated symptoms. No fever dizziness or lightheadedness. In the emergency room he was found to have elevated creatinine. Past Medical History Neurological Medical History: Reports: Migraine - from photophobia Psychiatric Medical History: Reports: Depression, Post Traumatic Stress Disorder Past Surgical History Past Surgical History: Reports: Tonsillectomy Social History Smoking Status: Never Smoker Frequency of Alcohol Use: None Drugs: Marijuana Hx Prescription Drug Abuse: No Family History Family History: Reviewed & Not Pertinent Parental Family History Reviewed: Yes Children Family History Reviewed: NA Sibling(s) Family History Reviewed.: NA Medication/Allergy Home Medications: Buspirone HCl [Buspar 10 mg Tablet] 10 mg PO Q12 07/21/18 Clonidine HCl [Catapres 0.1 mg Tablet] 0.1 mg PO QHS 07/21/18 Dextroamphetamine/Amphetamine [Adderall 10 mg Tablet] 10 mg PO QAM 07/21/18 Dronabinol [Marinol 2.5 mg Capsule] 2.5 mg PO TID 07/21/18 Olanzapine [Zyprexa 2.5 mg Tablet] 2.5 mg PO Q12 07/21/18 Venlafaxine HCl ER [Effexor Xr 37.5 mg Cap.sr] 37.5 mg PO Q12 07/21/18 Allergies/Adverse Reactions: codeine Allergy (Verified 07/17/18 12:18) Review of Systems All systems: reviewed and no additional remarkable complaints except as stated Physical Exam Vital Signs: Temp Pulse Resp BP Pulse Ox 97.7 F 76 16 117/84 97 07/21/18 11:09 07/21/18 14:38 07/21/18 11:09 07/21/18 11:09 07/21/18 11:09 Intake & Output 07/20/18 07/21/18 07/22/18 06:59 06:59 06:59 Intake Total 1999 Balance 1999 Weight 205 lb 0.478 oz General appearance: PRESENT: no acute distress, cooperative, well-developed Head exam: PRESENT: atraumatic, normocephalic Eye exam: PRESENT: EOMI, PERRLA. ABSENT: conjunctival injection, nystagmus, scleral icterus Ear exam: ABSENT: bleeding, drainage Mouth exam: PRESENT: moist, neck supple Teeth exam: ABSENT: edentulous, poor dentation Neck exam: ABSENT: meningismus, tenderness, thyromegaly, tracheostomy Respiratory exam: PRESENT: clear to auscultation jayme, symmetrical. ABSENT: accessory muscle use, crackles, rhonchi, wheezes Cardiovascular exam: PRESENT: RRR. ABSENT: bradycardia, diastolic murmur, systolic murmur, tachycardia Pulses: PRESENT: normal carotid pulses, normal radial pulses GI/Abdominal exam: PRESENT: normal bowel sounds, soft. ABSENT: ascites, tenderness Rectal exam: PRESENT: deferred Extremities exam: ABSENT: joint swelling, pedal edema Musculoskeletal exam: PRESENT: ambulatory. ABSENT: deformity Neurological exam: PRESENT: alert, awake, oriented to person, oriented to place, oriented to time, oriented to situation Psychiatric exam: PRESENT: appropriate affect, flat affect. ABSENT: agitated, anxious Skin exam: PRESENT: intact, normal color. ABSENT: abrasion, cyanosis, dry, erythema, mottled Results Laboratory Results: 07/21/18 08:07 07/21/18 08:07 07/21/18 07/21/18 07/21/18 08:07 08:07 08:07 WBC 10.0 RBC 5.15 Hgb 15.2 Hct 44.1 MCV 86 MCH 29.5 MCHC 34.4 RDW 13.0 Plt Count 186 Seg Neutrophils % 83.4 H Lymphocytes % 9.4 L Monocytes % 6.5 Eosinophils % 0.4 Basophils % 0.3 Absolute Neutrophils 8.3 H Absolute Lymphocytes 0.9 Absolute Monocytes 0.6 Absolute Eosinophils 0.0 Absolute Basophils 0.0 Sodium 141.0 Potassium 4.3 Chloride 103 Carbon Dioxide 26 Anion Gap 12 BUN 27 H Creatinine 2.69 H Est GFR ( Amer) 33 L Est GFR (Non-Af Amer) 27 L Glucose 130 H Calcium 9.2 Total Bilirubin 0.6 AST 16 L ALT 19 L Alkaline Phosphatase 101 Total Protein 6.8 Albumin 4.5 Lipase 69.6 Urine Color STRAW Urine Appearance CLEAR Urine pH 6.0 Ur Specific [place] 1.004 Urine Protein NEGATIVE Urine Glucose (UA) NEGATIVE Urine Ketones TRACE H Urine Blood SMALL H Urine Nitrite NEGATIVE Ur Leukocyte Esterase NEGATIVE Urine WBC (Auto) 2 Urine RBC (Auto) 0 07/21/18 08:07 Creatine Kinase 71 Impressions: Abdomen/Pelvis CT 07/21/18 08:00 IMPRESSION: No noncontrast CT findings to explain right-sided abdominal pain, nausea, or vomiting. No evidence of urinary tract calculus. Normal appendix. Assessment & Plan - Diagnosis (1) Acute renal injury Is this a current diagnosis for this admission?: Yes Plan: Likely prerenal. His FENa is 0.33%. We will give him IV fluids. We will monitor his renal function and electrolytes. We will check renal ultrasound. (2) Vomiting Is this a current diagnosis for this admission?: Yes Plan: Will start antiemetics as needed (3) PTSD (post-traumatic stress disorder) Is this a current diagnosis for this admission?: Yes Plan: Continue home medications
[2018-07-21] MEDS: VENLAFAXINE HCL 37.5 MG CAP.SR.24H PO SCH (21:46)
[2018-07-21] MEDS: OLANZAPINE 2.5 MG TABLET PO SCH (21:47)
[2018-07-21] MEDS: CLONIDINE HCL 0.1 MG TABLET PO SCH (21:47)
[2018-07-21] MEDS: BUSPIRONE HCL 10 MG TABLET PO SCH (21:47)
[2018-07-21] MEDS: DRONABINOL 2.5 MG CAPSULE PO SCH (21:48)
[2018-07-22] MEDS: ACETAMINOPHEN 325 MG TABLET PO PRN ×3 (05:07→23:30)
[2018-07-22] MEDS: DRONABINOL 2.5 MG CAPSULE PO SCH (05:07)
[2018-07-22] MEDS: ONDANSETRON HCL INJ/PF 4 MG/2 ML SDV IV PRN ×3 (05:07→23:29)
[2018-07-22] MEDS: NORMAL SALINE 1000 ML 1,000 ML IV PRN ×2 (05:13→15:23)
--- NOTE | 2018-07-22 06:15 | RADIOLOGY REPORT (SQ) ---
EXAM DESCRIPTION: US RETROPERITONEUM COMPLETED DATE/TME: 07/22/2018 00:00 CLINICAL HISTORY: 37 years Male, renal failure Comparison: One day prior LIMITATIONS: None. FINDINGS: 11-cm right kidney, 12-cm left kidney, and urinary bladder with demonstrated bilateral ureteral jet flow appear otherwise of normal size, shape, echotexture, and vascularity. IMPRESSION: Normal renal sonogram.
[2018-07-22 06:29] LABS: HEMATOCRIT 39.3 % (37.9-51.0); HEMOGLOBIN 13.3 g/dL (13.5-17.0); MEAN CORPUSCULAR HEMOGLOBIN 29.2 pg (27.0-33.4); MEAN CORPUSCULAR HGB CONC 33.9 g/dL (32.0-36.0); MEAN CORPUSCULAR VOLUME 86 fl (80-97); PLATELET COUNT 146 10^3/uL (150-450); RED BLOOD COUNT 4.57 10^6/uL (4.35-5.55); RED CELL DISTRIBUTION WIDTH 13.3 % (11.5-14.0); WHITE BLOOD COUNT 6.8 10^3/uL (4.0-10.5)
[2018-07-22 06:48] LABS: ANION GAP 7 (5-19); BLOOD UREA NITROGEN 22 mg/dL (7-20); CALCIUM 8.1 mg/dL (8.4-10.2); CARBON DIOXIDE 25 mmol/L (22-30); CHLORIDE 111 mmol/L (98-107); GLUCOSE 99 mg/dL (75-110); POTASSIUM 4.5 mmol/L (3.6-5.0); SODIUM 142.6 mmol/L (137-145)
[2018-07-22] MEDS: ENOXAPARIN SODIUM INJ 40 MG/0.4 ML DISP.SYRIN SUBCUT SCH (10:10)
[2018-07-22] MEDS: OLANZAPINE 2.5 MG TABLET PO SCH (10:11)
[2018-07-22] MEDS: BUSPIRONE HCL 10 MG TABLET PO SCH (10:11)
[2018-07-22] MEDS: VENLAFAXINE HCL 37.5 MG CAP.SR.24H PO SCH (10:11)
[2018-07-22 14:17] LABS: EOSINOPHIL SMEAR NO EOSINOPHILS SEEN; SPECIMEN TYPE URINE
--- NOTE | 2018-07-22 16:52 | PDOC PROGRESS REPORT ---
Subjective Progress Note for:: 07/22/18 Subjective:: Patient was seen and examined. He feels better. Still nauseous but tolerating fluids so far. His creatinine improved from 2.69-2.14. Reason For Visit: ACUTE RENAL FAILURE Physical Exam Vital Signs: Temp Pulse Resp BP Pulse Ox 97.8 F 64 18 134/88 H 100 07/22/18 11:49 07/22/18 14:00 07/22/18 11:49 07/22/18 11:49 07/22/18 11:49 Intake & Output 07/21/18 07/22/18 07/23/18 06:59 06:59 06:59 Intake Total 4281 1900 Output Total 2150 700 Balance 2131 1200 Weight 221 lb 5.506 oz General appearance: PRESENT: no acute distress, cooperative Head exam: PRESENT: atraumatic, normocephalic Mouth exam: PRESENT: moist, neck supple Neck exam: ABSENT: meningismus, tenderness Respiratory exam: PRESENT: clear to auscultation jayme. ABSENT: accessory muscle use Cardiovascular exam: PRESENT: RRR Pulses: PRESENT: normal radial pulses GI/Abdominal exam: PRESENT: normal bowel sounds, soft. ABSENT: tenderness Rectal exam: PRESENT: deferred Neurological exam: PRESENT: alert, awake, oriented to person, oriented to place, oriented to time, oriented to situation Results Laboratory Results: 07/22/18 05:57 07/22/18 05:57 07/22/18 07/22/18 05:57 05:57 WBC 6.8 RBC 4.57 Hgb 13.3 L Hct 39.3 MCV 86 MCH 29.2 MCHC 33.9 RDW 13.3 Plt Count 146 L Sodium 142.6 Potassium 4.5 Chloride 111 H Carbon Dioxide 25 Anion Gap 7 BUN 22 H Creatinine 2.14 H Est GFR ( Amer) 43 L Est GFR (Non-Af Amer) 35 L Glucose 99 Calcium 8.1 L 07/21/18 08:07 Creatine Kinase 71 Impressions: Abdomen/Pelvis CT 07/21/18 08:00 IMPRESSION: No noncontrast CT findings to explain right-sided abdominal pain, nausea, or vomiting. No evidence of urinary tract calculus. Normal appendix. Renal Ultrasound 07/22/18 00:00 IMPRESSION: Normal renal sonogram. Assessment & Plan - Diagnosis (1) Acute renal injury Is this a current diagnosis for this admission?: Yes Plan: Likely prerenal. His FENa is 0.33%. Continue with IV fluids. Continue to monitor his renal function and electrolytes. Unremarkable renal ultrasound. (2) Vomiting Is this a current diagnosis for this admission?: Yes Plan: Continue antiemetics as needed (3) PTSD (post-traumatic stress disorder) Is this a current diagnosis for this admission?: Yes Plan: Hold medications for now. Follow-up with psychiatry.
--- NOTE | 2018-07-22 17:43 | PDOC CONSULTATION ---
Consultation Consult Date: 07/22/18 Attending physician:: AL JOHNSON Consult reason:: I was asked to see the patient because of acute kidney injury. History of Present Illness Admission Date/PCP: 07/21/18 11:31 History of Present Illness: TORO SAINZ is a 37 year old male with unfortunate history of posttraumatic stress syndrome and traumatic brain injury who was admitted because of vomiting and acute renal failure. Patient was just recently admitted to the psych unit for suicidal ideation and was discharged last Wednesday. He was started on medications including BuSpar, Effexor, Zyprexa and clonidine. He was continued on everything except the BuSpar. On the day of discharge he experienced some nausea and vomiting, so he came back yesterday. He admits that his appetite has not been very good at least for the last 2 days or more and and his intake of solid foods are decreased but he claims that he has been drinking fluids. On admission he has a BUN of 27, creatinine of 2.69 with estimated GFR of 27. Today he had a BUN of 22, creatinine of 2.14 and estimated GFR of 35. On July 17 he has normal BUN of 14, creatinine of 1.19 with normal EGFR. He is not known to have any kidney disease nor kidney stones. He denies intake of any NSAIDs nor any contrast. He is being given IV fluids since admission. His urinalysis has no proteinuria with only small blood but no red blood cells. CT scan of the abdomen without contrast done on presentation showed no calculus no hydronephrosis. Kidney ultrasound done today showed right kidney measuring at 11 cm, left kidney at 12 cm basically unremarkable. According to the and the patient was admitted in the psych unit he was not allowed to walk with shoes so he has been just lying down on bed the whole time. Denies any other trauma. Past Medical History Neurological Medical History: Reports: Migraine - from photophobia, Other - Traumatic brain injury Psychiatric Medical History: Reports: Depression, Post Traumatic Stress Disorder Past Surgical History Past Surgical History: Reports: Tonsillectomy Social History Information Source: Patient, [facility] Records Lives with: Family Smoking Status: Never Smoker Frequency of Alcohol Use: None Drugs: Marijuana Hx Prescription Drug Abuse: No Family History Family History: DM - Father, Malignancy - Paternal uncle had pancreatic cancer, cousin of bone cancer, Other - Mother has bipolar disorder Parental Family History Reviewed: Yes Children Family History Reviewed: Yes Sibling(s) Family History Reviewed.: Yes Medication/Allergy Home Medications: Buspirone HCl [Buspar 10 mg Tablet] 10 mg PO Q12 07/21/18 Clonidine HCl [Catapres 0.1 mg Tablet] 0.1 mg PO QHS 07/21/18 Dextroamphetamine/Amphetamine [Adderall 10 mg Tablet] 10 mg PO QAM 07/21/18 Dronabinol [Marinol 2.5 mg Capsule] 2.5 mg PO TID 07/21/18 Olanzapine [Zyprexa 2.5 mg Tablet] 2.5 mg PO Q12 07/21/18 Venlafaxine HCl ER [Effexor Xr 37.5 mg Cap.sr] 37.5 mg PO Q12 07/21/18 Allergies/Adverse Reactions: codeine Allergy (Verified 07/17/18 12:18) Review of Systems All systems: reviewed and no additional remarkable complaints except as stated Review of Systems: Constitutional: ABSENT: chills, fatigue, fever(s), headache(s), weight gain, weight loss; admits decreased appetite Eyes: ABSENT: visual disturbances Ears: ABSENT: hearing changes Cardiovascular: ABSENT: chest pain, dyspnea on exertion, edema, orthropnea, palpitations Respiratory: ABSENT: cough, dyspnea, hemoptysis Gastrointestinal: ABSENT: abdominal pain, constipation, diarrhea, hematemesis, hematochezia; admits nausea, and vomiting Genitourinary: ABSENT: dysuria, hematuria Musculoskeletal: ABSENT: joint swelling; bilateral flank pains right greater than the left Integumentary: ABSENT: rash, wounds Neurological: ABSENT: abnormal gait, abnormal speech, confusion, dizziness, focal weakness, numbness, syncope Psychiatric: ABSENT: anxiety, depression Endocrine: ABSENT: cold intolerance, heat intolerance, polydipsia, polyuria Hematologic/Lymphatic: ABSENT: easy bleeding, easy bruising, lymphadenopathy Physical Exam Vital Signs: Temp Pulse Resp BP Pulse Ox 97.9 F 61 18 124/85 100 07/22/18 15:18 07/22/18 15:18 07/22/18 15:18 07/22/18 15:18 07/22/18 15:18 Intake & Output 07/21/18 07/22/18 07/23/18 06:59 06:59 06:59 Intake Total 4281 1900 Output Total 2150 700 Balance 2131 1200 Weight 100.4 kg Exam: General appearance: No acute distress, cooperative, well-developed, well- nourished Head exam: PRESENT: atraumatic, normocephalic Eye exam: PRESENT: Conjunctiva C[place]ield, EOMI, PERRLA. ABSENT: conjunctival injection, scleral icterus Mouth exam: PRESENT: moist, neck supple, tongue midline Neck exam: PRESENT: full ROM. ABSENT: carotid bruit, JVD, lymphadenopathy, thyromegaly Respiratory exam: PRESENT: clear to auscultation bilaterally. ABSENT: rales, rhonchi, stridor, wheezes Cardiovascular exam: PRESENT: RRR, +S1, +S2. ABSENT: systolic murmur Pulses: PRESENT: normal radial pulses, normal dorsalis pedis pulses GI/Abdominal exam: PRESENT: normal bowel sounds, soft. Bilateral costovertebral angle mild tenderness on palpation ABSENT: guarding, mass, tenderness Rectal exam: Deferred Extremities exam: PRESENT: full ROM. ABSENT: calf tenderness, pedal edema Musculoskeletal: PRESENT: full ROM. ABSENT: deformity Neurological exam: PRESENT: alert, Awake, Oriented to person, Oriented to place, Oriented to time, reflexes normal, CN II-XII grossly intact. ABSENT: motor sensory deficit Psychiatric exam: PRESENT: appropriate affect, normal mood. ABSENT: homicidal ideation, suicidal ideation Skin exam: PRESENT: intact, dry, warm. ABSENT: rash Results Laboratory Results: 07/22/18 05:57 07/22/18 05:57 07/22/18 07/22/18 05:57 05:57 WBC 6.8 RBC 4.57 Hgb 13.3 L Hct 39.3 MCV 86 MCH 29.2 MCHC 33.9 RDW 13.3 Plt Count 146 L Sodium 142.6 Potassium 4.5 Chloride 111 H Carbon Dioxide 25 Anion Gap 7 BUN 22 H Creatinine 2.14 H Est GFR ( Amer) 43 L Est GFR (Non-Af Amer) 35 L Glucose 99 Calcium 8.1 L 07/21/18 08:07 Creatine Kinase 71 Impressions: Abdomen/Pelvis CT 07/21/18 08:00 IMPRESSION: No noncontrast CT findings to explain right-sided abdominal pain, nausea, or vomiting. No evidence of urinary tract calculus. Normal appendix. Renal Ultrasound 07/22/18 00:00 IMPRESSION: Normal renal sonogram. Assessment & Plan - Diagnosis (1) Acute renal injury Is this a current diagnosis for this admission?: Yes Plan: Is likely secondary to prerenal azotemia secondary to volume depletion and poor oral intake due to GI complaints. Kidney function seems to be slowly improving with IV fluid hydration alone. Continue the same management. Monitor kidney function and avoid nephrotoxic medications. (2) Bilateral flank pain Is this a current diagnosis for this admission?: Yes Plan: No evidence of any pathology kidneys that can explain this nor do any findings on any other organ system based on imaging studies. This is most likely mu sculoskeletal in origin. (3) Vomiting Is this a current diagnosis for this admission?: Yes Plan: Defer to hospitalist service. (4) PTSD (post-traumatic stress disorder) Is this a current diagnosis for this admission?: Yes - Notes Notes: Thank you very much for this consultation. - Time Time Spent: 50 to 70 Minutes
[2018-07-22] MEDS: CLONIDINE HCL 0.1 MG TABLET PO SCH (21:43)
[2018-07-23] MEDS: NORMAL SALINE 1000 ML 1,000 ML IV PRN ×3 (00:12→14:15)
[2018-07-23] MEDS ORDERED: OLANZAPINE 5 MG TABLET PO ONE (00:15)
[2018-07-23 05:14] LABS: HEMATOCRIT 36.9 % (37.9-51.0); HEMOGLOBIN 12.8 g/dL (13.5-17.0); MEAN CORPUSCULAR HEMOGLOBIN 29.7 pg (27.0-33.4); MEAN CORPUSCULAR HGB CONC 34.8 g/dL (32.0-36.0); MEAN CORPUSCULAR VOLUME 86 fl (80-97); PLATELET COUNT 148 10^3/uL (150-450); RED BLOOD COUNT 4.31 10^6/uL (4.35-5.55); RED CELL DISTRIBUTION WIDTH 13.6 % (11.5-14.0)
[2018-07-23 05:43] LABS: ALANINE AMINOTRANSFERASE 14 U/L (21-72); ALBUMIN 3.1 g/dL (3.5-5.0); ALKALINE PHOSPHATASE 79 U/L (38-126); ANION GAP 7 (5-19); ASPARTATE AMINO TRANSFERASE 12 U/L (17-59); BILIRUBIN,DIRECT 0.2 mg/dL (0.0-0.4); BILIRUBIN,TOTAL 0.3 mg/dL (0.2-1.3); BLOOD UREA NITROGEN 18 mg/dL (7-20); CALCIUM 8.1 mg/dL (8.4-10.2); CARBON DIOXIDE 23 mmol/L (22-30); CHLORIDE 114 mmol/L (98-107); GLUCOSE 95 mg/dL (75-110); POTASSIUM 4.2 mmol/L (3.6-5.0); SODIUM 143.6 mmol/L (137-145); TOTAL PROTEIN 5.1 g/dL (6.3-8.2)
[2018-07-23] MEDS: DOCUSATE SODIUM 100 MG CAPSULE PO SCH ×2 (09:32→17:07)
[2018-07-23] MEDS: ENOXAPARIN SODIUM INJ 40 MG/0.4 ML DISP.SYRIN SUBCUT SCH (09:36)
[2018-07-23] MEDS: ONDANSETRON HCL INJ/PF 4 MG/2 ML SDV IV PRN ×3 (10:56→21:50)
--- NOTE | 2018-07-23 13:00 | PDOC PROGRESS REPORT ---
Subjective Progress Note for:: 07/23/18 Subjective:: Patient was seen and examined. He feels better. He is tolerating diet. His creatinine improved to 2.07. Reason For Visit: ACUTE RENAL FAILURE Physical Exam Vital Signs: Temp Pulse Resp BP Pulse Ox 98.2 F 51 L 17 128/89 H 97 07/23/18 07:43 07/23/18 07:43 07/23/18 07:43 07/23/18 07:43 07/23/18 07:43 Intake & Output 07/22/18 07/23/18 07/24/18 06:59 06:59 06:59 Intake Total 4281 4088 Output Total 2150 2600 Balance 2131 1488 Weight 221 lb 5.506 oz 223 lb 5.252 oz General appearance: PRESENT: no acute distress, cooperative Head exam: PRESENT: atraumatic, normocephalic Mouth exam: PRESENT: moist, neck supple Throat exam: ABSENT: tonsillar exudate, tonsillogmegaly Neck exam: ABSENT: meningismus, tenderness Respiratory exam: PRESENT: accessory muscle use, clear to auscultation jayme Cardiovascular exam: PRESENT: RRR Pulses: PRESENT: normal radial pulses GI/Abdominal exam: PRESENT: normal bowel sounds, soft Rectal exam: PRESENT: deferred Musculoskeletal exam: PRESENT: ambulatory. ABSENT: deformity Neurological exam: PRESENT: alert, awake, oriented to person, oriented to place, oriented to time, oriented to situation Results Laboratory Results: 07/23/18 04:53 07/23/18 04:53 07/23/18 07/23/18 04:53 04:53 WBC 6.0 RBC 4.31 L Hgb 12.8 L Hct 36.9 L MCV 86 MCH 29.7 MCHC 34.8 RDW 13.6 Plt Count 148 L Sodium 143.6 Potassium 4.2 Chloride 114 H Carbon Dioxide 23 Anion Gap 7 BUN 18 Creatinine 2.07 H Est GFR ( Amer) 44 L Est GFR (Non-Af Amer) 37 L Glucose 95 Calcium 8.1 L Total Bilirubin 0.3 AST 12 L ALT 14 L Alkaline Phosphatase 79 Total Protein 5.1 L Albumin 3.1 L 07/21/18 08:07 Creatine Kinase 71 Impressions: Abdomen/Pelvis CT 07/21/18 08:00 IMPRESSION: No noncontrast CT findings to explain right-sided abdominal pain, nausea, or vomiting. No evidence of urinary tract calculus. Normal appendix. Renal Ultrasound 07/22/18 00:00 IMPRESSION: Normal renal sonogram. Assessment & Plan - Diagnosis (1) Acute renal injury Is this a current diagnosis for this admission?: Yes Plan: Likely prerenal. His FENa is 0.33%. Continue with IV fluids. Continue to monitor his renal function and electrolytes. Unremarkable renal ultrasound. (2) Vomiting Is this a current diagnosis for this admission?: Yes Plan: Continue antiemetics as needed. Tolerating diet. (3) PTSD (post-traumatic stress disorder) Is this a current diagnosis for this admission?: Yes Plan: Hold medications for now. Restart buspirone. Follow-up with psychiatry.
[2018-07-23] MEDS ORDERED: ALPRAZOLAM 0.25 MG TABLET PO PRN (18:37)
[2018-07-23] MEDS: BUSPIRONE HCL 10 MG TABLET PO SCH (21:50)
[2018-07-23] MEDS: CLONIDINE HCL 0.1 MG TABLET PO SCH (21:50)
[2018-07-23] MEDS: ACETAMINOPHEN 325 MG TABLET PO PRN (21:54)
[2018-07-24] MEDS: NORMAL SALINE 1000 ML 1,000 ML IV PRN ×3 (00:39→18:39)
[2018-07-24] MEDS: ACETAMINOPHEN 325 MG TABLET PO PRN (03:48)
[2018-07-24 05:28] LABS: ALANINE AMINOTRANSFERASE 27 U/L (21-72); ALBUMIN 3.4 g/dL (3.5-5.0); ALKALINE PHOSPHATASE 84 U/L (38-126); ANION GAP 7 (5-19); ASPARTATE AMINO TRANSFERASE 16 U/L (17-59); BILIRUBIN,DIRECT 0.1 mg/dL (0.0-0.4); BILIRUBIN,TOTAL 0.2 mg/dL (0.2-1.3); BLOOD UREA NITROGEN 13 mg/dL (7-20); CALCIUM 8.5 mg/dL (8.4-10.2); CARBON DIOXIDE 25 mmol/L (22-30); CHLORIDE 113 mmol/L (98-107); GLUCOSE 95 mg/dL (75-110); POTASSIUM 4.3 mmol/L (3.6-5.0); TOTAL PROTEIN 5.4 g/dL (6.3-8.2)
[2018-07-24] MEDS ORDERED: TEMAZEPAM 7.5 MG CAPSULE PO PRN (11:20)
--- NOTE | 2018-07-24 11:20 | PDOC PROGRESS REPORT ---
Subjective Progress Note for:: 07/24/18 Subjective:: Patient was seen and examined. He feels better. He is tolerating diet. His creatinine is more or less the same at 2.16. Reason For Visit: ACUTE RENAL FAILURE Physical Exam Vital Signs: Temp Pulse Resp BP Pulse Ox 98.0 F 53 L 18 137/94 H 98 07/24/18 07:40 07/24/18 07:40 07/24/18 07:40 07/24/18 07:40 07/24/18 07:40 Intake & Output 07/23/18 07/24/18 07/25/18 06:59 06:59 06:59 Intake Total 4088 3945 967 Output Total 2600 2150 Balance 1488 1795 967 Weight 223 lb 5.252 oz 221 lb 5.506 oz General appearance: PRESENT: no acute distress, cooperative Head exam: PRESENT: atraumatic, normocephalic Eye exam: PRESENT: EOMI. ABSENT: conjunctival injection Mouth exam: PRESENT: moist, neck supple Neck exam: ABSENT: meningismus, tenderness Respiratory exam: PRESENT: clear to auscultation jayme. ABSENT: accessory muscle use Pulses: PRESENT: normal carotid pulses, normal radial pulses GI/Abdominal exam: PRESENT: normal bowel sounds, soft. ABSENT: tenderness Rectal exam: PRESENT: deferred Musculoskeletal exam: PRESENT: ambulatory. ABSENT: deformity Neurological exam: PRESENT: alert, awake, oriented to person, oriented to time, oriented to situation Psychiatric exam: PRESENT: anxious Results Laboratory Results: 07/23/18 04:53 07/24/18 04:45 07/24/18 04:45 Sodium 145.0 Potassium 4.3 Chloride 113 H Carbon Dioxide 25 Anion Gap 7 BUN 13 Creatinine 2.16 H Est GFR ( Amer) 42 L Est GFR (Non-Af Amer) 35 L Glucose 95 Calcium 8.5 Total Bilirubin 0.2 AST 16 L ALT 27 Alkaline Phosphatase 84 Total Protein 5.4 L Albumin 3.4 L 07/21/18 08:07 Creatine Kinase 71 Impressions: Abdomen/Pelvis CT 07/21/18 08:00 IMPRESSION: No noncontrast CT findings to explain right-sided abdominal pain, nausea, or vomiting. No evidence of urinary tract calculus. Normal appendix. Renal Ultrasound 07/22/18 00:00 IMPRESSION: Normal renal sonogram. Assessment & Plan - Diagnosis (1) Acute renal injury Is this a current diagnosis for this admission?: Yes Plan: Thought to be prerenal since his FENa was 0.33%. Continue with IV fluids. Continue to monitor his renal function and electrolytes. Unremarkable renal ultrasound. His creatinine is not improving much. We will check HIV, hepatitis serology, rheumatoid factor and MEET comprehensive panel. Nephrology is following. Discussed with the patient and his . (2) Vomiting Is this a current diagnosis for this admission?: Yes Plan: Continue antiemetics as needed. Tolerating diet. (3) PTSD (post-traumatic stress disorder) Is this a current diagnosis for this admission?: Yes Plan: Continue to hold Buspar and olanzapine. Restart Effexor. Follow-up with psychiatry.
[2018-07-24] MEDS: ENOXAPARIN SODIUM INJ 40 MG/0.4 ML DISP.SYRIN SUBCUT SCH (11:50)
[2018-07-24] MEDS: DOCUSATE SODIUM 100 MG CAPSULE PO SCH ×2 (11:50→18:11)
--- NOTE | 2018-07-24 14:05 | PSYCHOLOGICAL NOTE ---
Psych Note - Psych Note Date seen by psych provider: 07/24/18 Time seen by psych provider: 16:00 Psych Note: Reason for Consult: medication recommendations Patient reports he is doing very well right now. He disclosed that he was feeling very poorly and is glad that his health is now improving. He is unsure if his mental health became worse because he was starting to get sick but denies any thoughts of wanting to harm himself or others. Patient openly engaged with clinician and his latter-day thoughts and difficulty with coming to terms gnosticism after seeing the things he saw in combat. He reports that he wishes that he did not need to take the medication however at this point his is unwilling to allow him to stop taking medication because of the past recent events of his instability with his thoughts. Patient is alert and orientated to person, place, time and circumstance. Mood is euthymic with congruent affect as evidenced by smiling and openly engaging with clinician. Patient denies suicidal and homicidal ideations. Delusions are absent behaviors congruent with an intact reality based presentation i.e. organized and linear thought process. Eye contact was well-maintained. Conversational speech is within normal rate, tone and prosody. Intellectual abilities appear to be within the average range. Attention and concentration were good. Insight, judgment, impulse control are currently good. Medication recommendations per [facility]'s contracted psychiatrist Dr. Angelo REINOSO are as follows Please hold all psychiatric medications due to medical concerns 309.81 (F43.10) posttraumatic stress disorder per history provided by patient 311 (F32.9) unspecified depressive disorder impression\plan: Patient is cleared from acute psychiatric services. Patient is presenting much improved from previous evaluations. Patient discloses that his wants him to continue taking the medications and he has no problem with that. He still wishes he did not need medications. He is unsure when he started feeling sick. He denies any thoughts of wanting to harm himself or others. He engaged fully with clinician discussed his thoughts and believes. Patient is recommended to continue with outpatient mental health services. Dr. Carpenter was consulted and the care management this patient; attending physicians agreement with recommendations and disposition.
[2018-07-24] MEDS: CLONIDINE HCL 0.1 MG TABLET PO SCH (21:13)
[2018-07-24] MEDS: VENLAFAXINE HCL 37.5 MG CAP.SR.24H PO SCH (21:13)
[2018-07-25] MEDS: NORMAL SALINE 1000 ML 1,000 ML IV PRN ×2 (01:09→09:34)
[2018-07-25] MEDS: ONDANSETRON HCL INJ/PF 4 MG/2 ML SDV IV PRN (05:43)
[2018-07-25 05:58] LABS: ANION GAP 9 (5-19); BLOOD UREA NITROGEN 13 mg/dL (7-20); CALCIUM 8.3 mg/dL (8.4-10.2); CARBON DIOXIDE 24 mmol/L (22-30); CHLORIDE 112 mmol/L (98-107); GLUCOSE 95 mg/dL (75-110); POTASSIUM 4.1 mmol/L (3.6-5.0); SODIUM 145.1 mmol/L (137-145)
[2018-07-25] MEDS: DOCUSATE SODIUM 100 MG CAPSULE PO SCH ×2 (09:32→18:15)
[2018-07-25] MEDS: VENLAFAXINE HCL 37.5 MG CAP.SR.24H PO SCH ×2 (09:33→22:07)
[2018-07-25] MEDS: ENOXAPARIN SODIUM INJ 40 MG/0.4 ML DISP.SYRIN SUBCUT SCH (09:33)
[2018-07-25] MEDS ORDERED: RINGERS SOLUTION,LACTATED 1,000 ML IV PRN (10:46)
--- NOTE | 2018-07-25 14:56 | PDOC PROGRESS REPORT ---
Subjective Progress Note for:: 07/25/18 Reason For Visit: Patient seen today along with his . He is sitting in bed comfortably in no distress. He denies any specific complaints of nausea vomiting, chest pain or shortness of breath. No complaints of any fever or chills. Does not have any difficulty to urinate.Labs and medications were reviewed which show stable creatinine of 2.1. Physical Exam Vital Signs: Temp Pulse Resp BP Pulse Ox 98.3 F 63 16 136/93 H 98 07/25/18 11:21 07/25/18 11:21 07/25/18 11:21 07/25/18 11:21 07/25/18 11:21 Intake & Output 07/24/18 07/25/18 07/26/18 06:59 06:59 06:59 Intake Total 3945 7894 2500 Output Total 2150 Balance 1795 7894 2500 Weight 100.4 kg 99.7 kg General appearance: PRESENT: no acute distress Respiratory exam: PRESENT: clear to auscultation jayme. ABSENT: crackles GI/Abdominal exam: PRESENT: normal bowel sounds, soft. ABSENT: organomegaly, tenderness Extremities exam: ABSENT: pedal edema Neurological exam: PRESENT: alert, awake, oriented to person, oriented to place Skin exam: ABSENT: cyanosis, erythema, mottled, rash Results Laboratory Results: 07/23/18 04:53 07/25/18 04:49 07/25/18 04:49 Sodium 145.1 H Potassium 4.1 Chloride 112 H Carbon Dioxide 24 Anion Gap 9 BUN 13 Creatinine 2.10 H Est GFR ( Amer) 43 L Est GFR (Non-Af Amer) 36 L Glucose 95 Calcium 8.3 L 07/21/18 08:07 Creatine Kinase 71 Impressions: Abdomen/Pelvis CT 07/21/18 08:00 IMPRESSION: No noncontrast CT findings to explain right-sided abdominal pain, nausea, or vomiting. No evidence of urinary tract calculus. Normal appendix. Renal Ultrasound 07/22/18 00:00 IMPRESSION: Normal renal sonogram. Assessment & Plan - Diagnosis (1) Acute renal injury Is this a current diagnosis for this admission?: Yes Plan: Nonoliguric stable. No clear indication of his acute insult other than dehydration. Continue hydration. Renal ultrasound was unremarkable. He is not having any more vomiting and no obvious signs of dehydration at the moment. (2) Vomiting Is this a current diagnosis for this admission?: Yes Plan: Resolved. Monitor
--- NOTE | 2018-07-25 16:11 | PDOC PROGRESS REPORT ---
Subjective Progress Note for:: 07/25/18 Subjective:: No acute events overnight. Good night sleep due to chronic insomnia. Sitting comfortably in bed denies any nausea, vomiting, chest pain, shortness of breath, diarrhea, fever, chills or any urinary symptoms. Reason For Visit: ACUTE RENAL FAILURE Physical Exam Vital Signs: Temp Pulse Resp BP Pulse Ox 98.3 F 48 L 16 136/93 H 98 07/25/18 11:21 07/25/18 14:00 07/25/18 11:21 07/25/18 11:21 07/25/18 11:21 Intake & Output 07/24/18 07/25/18 07/26/18 06:59 06:59 06:59 Intake Total 3945 7894 2500 Output Total 2150 Balance 1795 7894 2500 Weight 100.4 kg 99.7 kg General appearance: PRESENT: no acute distress, well-developed, well-nourished Head exam: PRESENT: atraumatic, normocephalic Respiratory exam: PRESENT: clear to auscultation jayme. ABSENT: rales, rhonchi, wheezes Cardiovascular exam: PRESENT: RRR. ABSENT: diastolic murmur, rubs, systolic murmur GI/Abdominal exam: PRESENT: normal bowel sounds, soft. ABSENT: distended, guarding, mass, organolmegaly, rebound, tenderness Extremities exam: PRESENT: full ROM. ABSENT: calf tenderness, clubbing, pedal edema Neurological exam: PRESENT: alert, awake, oriented to person, oriented to place, oriented to time, oriented to situation, CN II-XII grossly intact. ABSENT: motor sensory deficit Results Laboratory Results: 07/23/18 04:53 07/25/18 04:49 07/25/18 04:49 Sodium 145.1 H Potassium 4.1 Chloride 112 H Carbon Dioxide 24 Anion Gap 9 BUN 13 Creatinine 2.10 H Est GFR ( Amer) 43 L Est GFR (Non-Af Amer) 36 L Glucose 95 Calcium 8.3 L 07/21/18 08:07 Creatine Kinase 71 Impressions: Abdomen/Pelvis CT 07/21/18 08:00 IMPRESSION: No noncontrast CT findings to explain right-sided abdominal pain, nausea, or vomiting. No evidence of urinary tract calculus. Normal appendix. Renal Ultrasound 07/22/18 00:00 IMPRESSION: Normal renal sonogram. Assessment & Plan - Diagnosis (1) Acute renal injury Is this a current diagnosis for this admission?: Yes Plan: FENa 0.33%. Nonoliguric. Likely prerenal caused by dehydration. Creatinine is stable. Renal ultrasound unremarkable. Monitor volume status and electrolytes. Continue IV fluids guided by volume status. RF factor negative, hepatitis panel pending, IV negative. (2) Vomiting Is this a current diagnosis for this admission?: Yes Plan: Resolved. (3) PTSD (post-traumatic stress disorder) Is this a current diagnosis for this admission?: Yes Plan: Psych meds on hold as per psychiatrist recommendation.
[2018-07-25] MEDS: RINGERS SOLUTION,LACTATED 1,000 ML IV PRN (20:32)
[2018-07-25] MEDS ORDERED: MIRTAZAPINE 15 MG TABLET PO SCH (22:00)
[2018-07-25] MEDS: CLONIDINE HCL 0.1 MG TABLET PO SCH (22:08)
[2018-07-26] MEDS: RINGERS SOLUTION,LACTATED 1,000 ML IV PRN (04:13)
[2018-07-26 06:38] LABS: ABSOLUTE EOSINOPHILS # (AUTO) 0.2 10^3/uL (0.0-0.6); ABSOLUTE LYMPHOCYTES (AUTO) 1.3 10^3/uL (0.5-4.7); ABSOLUTE MONOCYTES (AUTO) 0.5 10^3/uL (0.1-1.4); ABSOLUTE NEUT (AUTO) 4.6 10^3/uL (1.7-8.2); BASOPHILS % (AUTO) 0.5 % (0-2); EOSINOPHILS % (AUTO) 2.8 % (0-6); HEMATOCRIT 38.9 % (37.9-51.0); HEMOGLOBIN 13.5 g/dL (13.5-17.0); LYMPHOCYTES % (AUTO) 19.5 % (13-45); MEAN CORPUSCULAR HEMOGLOBIN 29.4 pg (27.0-33.4); MEAN CORPUSCULAR HGB CONC 34.7 g/dL (32.0-36.0); MEAN CORPUSCULAR VOLUME 85 fl (80-97); PLATELET COUNT 173 10^3/uL (150-450); RED CELL DISTRIBUTION WIDTH 13.2 % (11.5-14.0); SEGMENTED NEUTROPHILS % (AUTO) 70.2 % (42-78); TOTAL CELLS COUNTED % (AUTO) 100 %; WHITE BLOOD COUNT 6.5 10^3/uL (4.0-10.5)
[2018-07-26 07:24] LABS: ALANINE AMINOTRANSFERASE 20 U/L (21-72); ALBUMIN 3.7 g/dL (3.5-5.0); ALKALINE PHOSPHATASE 82 U/L (38-126); ANION GAP 10 (5-19); ASPARTATE AMINO TRANSFERASE 13 U/L (17-59); BILIRUBIN,DIRECT 0.2 mg/dL (0.0-0.4); BILIRUBIN,TOTAL 0.4 mg/dL (0.2-1.3); BLOOD UREA NITROGEN 12 mg/dL (7-20); CALCIUM 8.9 mg/dL (8.4-10.2); CARBON DIOXIDE 26 mmol/L (22-30); CHLORIDE 109 mmol/L (98-107); GLUCOSE 97 mg/dL (75-110); POTASSIUM 4.2 mmol/L (3.6-5.0); SODIUM 145.2 mmol/L (137-145); TOTAL PROTEIN 5.7 g/dL (6.3-8.2)
[2018-07-26] MEDS: DOCUSATE SODIUM 100 MG CAPSULE PO SCH ×2 (09:33→18:07)
[2018-07-26] MEDS: VENLAFAXINE HCL 37.5 MG CAP.SR.24H PO SCH ×2 (09:34→21:27)
[2018-07-26] MEDS: ENOXAPARIN SODIUM INJ 40 MG/0.4 ML DISP.SYRIN SUBCUT SCH (09:35)
[2018-07-26 09:40] LABS: HEPATITIS A AB IGM Negative (Negative); HEPATITIS B CORE AB IGM Negative (Negative); HEPATITS B SURFACE ANTIGEN Negative (Negative)
[2018-07-26 09:54] LABS: HEPATITIS C VIRUS ANTIBODY <0.1 s/co ratio (0.0-0.9)
[2018-07-26] MEDS: ACETAMINOPHEN 325 MG TABLET PO PRN ×2 (10:28→18:14)
[2018-07-26 12:38] LABS: ANTICHROMATIN AB <0.2 AI (0.0-0.9); CENTROMERE B AB <0.2 AI (0.0-0.9); JO-1 ANTIBODY (ANACOMP) <0.2 AI (0.0-0.9); SJOGREN'S ANTI-SS-B AB <0.2 AI (0.0-0.9); SJOGREN'S SS-A ANTIBODY <0.2 AI (0.0-0.9)
[2018-07-26 15:04] LABS: DNA DOUBLE STRAND ANTIBODY ANA <1 IU/mL (0-9)
--- NOTE | 2018-07-26 15:13 | PDOC PROGRESS REPORT ---
Subjective Progress Note for:: 07/26/18 Reason For Visit: He is doing well. No specific complaints. Good urine output. Labs reviewed shows improving creatinine. Physical Exam Vital Signs: Temp Pulse Resp BP Pulse Ox 98.4 F 56 L 18 126/87 H 98 07/26/18 07:15 07/26/18 07:15 07/26/18 07:15 07/26/18 07:15 07/26/18 07:15 Intake & Output 07/25/18 07/26/18 07/27/18 06:59 06:59 06:59 Intake Total 7894 5260 Balance 7894 5260 Weight 99.7 kg 95.5 kg General appearance: PRESENT: no acute distress Respiratory exam: PRESENT: clear to auscultation jayme. ABSENT: crackles GI/Abdominal exam: PRESENT: normal bowel sounds, soft. ABSENT: organomegaly, tenderness Extremities exam: ABSENT: pedal edema Results Laboratory Results: 07/26/18 06:02 07/26/18 06:02 07/26/18 07/26/18 06:02 06:02 WBC 6.5 RBC 4.60 Hgb 13.5 Hct 38.9 MCV 85 MCH 29.4 MCHC 34.7 RDW 13.2 Plt Count 173 Seg Neutrophils % 70.2 Lymphocytes % 19.5 Monocytes % 7.0 Eosinophils % 2.8 Basophils % 0.5 Absolute Neutrophils 4.6 Absolute Lymphocytes 1.3 Absolute Monocytes 0.5 Absolute Eosinophils 0.2 Absolute Basophils 0.0 Sodium 145.2 H Potassium 4.2 Chloride 109 H Carbon Dioxide 26 Anion Gap 10 BUN 12 Creatinine 1.98 H Est GFR ( Amer) 47 L Est GFR (Non-Af Amer) 38 L Glucose 97 Calcium 8.9 Magnesium 1.9 Total Bilirubin 0.4 AST 13 L ALT 20 L Alkaline Phosphatase 82 Total Protein 5.7 L Albumin 3.7 07/21/18 08:07 Creatine Kinase 71 Impressions: Abdomen/Pelvis CT 07/21/18 08:00 IMPRESSION: No noncontrast CT findings to explain right-sided abdominal pain, nausea, or vomiting. No evidence of urinary tract calculus. Normal appendix. Renal Ultrasound 07/22/18 00:00 IMPRESSION: Normal renal sonogram. Assessment & Plan - Diagnosis (1) Acute renal injury Is this a current diagnosis for this admission?: Yes Plan: Nonoliguric stable. No clear indication of his acute insult other than dehydration. Continue hydration but change fluids to ns. (2) Vomiting Is this a current diagnosis for this admission?: Yes Plan: Resolved. Monitor
--- NOTE | 2018-07-26 17:10 | PDOC PROGRESS REPORT ---
Subjective Progress Note for:: 07/26/18 Subjective:: No acute events overnight. Patient was able to get about 4 hours of sleep after receiving mirtazapine 7.5 last night. Ambulatory, p.o. tolerant, having normal bowel and bladder movements. Denies fever, chills, nausea, vomiting, diarrhea, constipation or any urinary symptoms. Reason For Visit: ACUTE RENAL FAILURE Physical Exam Vital Signs: Temp Pulse Resp BP Pulse Ox 98.8 F 59 L 18 132/88 H 99 07/26/18 15:11 07/26/18 15:11 07/26/18 15:11 07/26/18 15:11 07/26/18 15:11 Intake & Output 07/25/18 07/26/18 07/27/18 06:59 06:59 06:59 Intake Total 7894 5260 Balance 7894 5260 Weight 99.7 kg 95.5 kg General appearance: PRESENT: no acute distress, well-developed, well-nourished Head exam: PRESENT: atraumatic, normocephalic Eye exam: PRESENT: conjunctiva pink, EOMI, PERRLA. ABSENT: scleral icterus Ear exam: PRESENT: normal external ear exam Mouth exam: PRESENT: moist, tongue midline Neck exam: ABSENT: carotid bruit, JVD, lymphadenopathy, thyromegaly Respiratory exam: PRESENT: clear to auscultation jayme. ABSENT: rales, rhonchi, wheezes Cardiovascular exam: PRESENT: RRR. ABSENT: diastolic murmur, rubs, systolic murmur Pulses: PRESENT: normal dorsalis pedis pul Vascular exam: PRESENT: normal capillary refill GI/Abdominal exam: PRESENT: normal bowel sounds, soft. ABSENT: distended, guarding, mass, organolmegaly, rebound, tenderness Rectal exam: PRESENT: deferred Extremities exam: PRESENT: full ROM. ABSENT: calf tenderness, clubbing, pedal edema Neurological exam: PRESENT: alert, awake, oriented to person, oriented to place, oriented to time, oriented to situation, CN II-XII grossly intact. ABSENT: motor sensory deficit Psychiatric exam: PRESENT: appropriate affect, normal mood. ABSENT: homicidal ideation, suicidal ideation Skin exam: PRESENT: dry, intact, warm. ABSENT: cyanosis, rash Results Laboratory Results: 07/26/18 06:02 07/26/18 06:02 07/26/18 07/26/18 06:02 06:02 WBC 6.5 RBC 4.60 Hgb 13.5 Hct 38.9 MCV 85 MCH 29.4 MCHC 34.7 RDW 13.2 Plt Count 173 Seg Neutrophils % 70.2 Lymphocytes % 19.5 Monocytes % 7.0 Eosinophils % 2.8 Basophils % 0.5 Absolute Neutrophils 4.6 Absolute Lymphocytes 1.3 Absolute Monocytes 0.5 Absolute Eosinophils 0.2 Absolute Basophils 0.0 Sodium 145.2 H Potassium 4.2 Chloride 109 H Carbon Dioxide 26 Anion Gap 10 BUN 12 Creatinine 1.98 H Est GFR ( Amer) 47 L Est GFR (Non-Af Amer) 38 L Glucose 97 Calcium 8.9 Magnesium 1.9 Total Bilirubin 0.4 AST 13 L ALT 20 L Alkaline Phosphatase 82 Total Protein 5.7 L Albumin 3.7 07/21/18 08:07 Creatine Kinase 71 Impressions: Abdomen/Pelvis CT 07/21/18 08:00 IMPRESSION: No noncontrast CT findings to explain right-sided abdominal pain, nausea, or vomiting. No evidence of urinary tract calculus. Normal appendix. Renal Ultrasound 07/22/18 00:00 IMPRESSION: Normal renal sonogram. Assessment & Plan - Diagnosis (1) Acute renal injury Is this a current diagnosis for this admission?: Yes Plan: FENa 0.33%. Nonoliguric. Likely prerenal caused by dehydration. Creatinine 1.98 down from 2.10. Renal ultrasound unremarkable. Monitor volume status and electrolytes. Continue IV fluids guided by volume status. RF, hepatitis panel, HIV negative (2) Vomiting Is this a current diagnosis for this admission?: Yes Plan: Resolved. (3) PTSD (post-traumatic stress disorder) Is this a current diagnosis for this admission?: Yes Plan: Psych meds on hold as per psychiatrist recommendation. (4) Insomnia Is this a current diagnosis for this admission?: Yes Plan: Started on mirtazapine 7.5 with good results. Will increase to 15 mg p.o. nightly.
[2018-07-26] MEDS: CLONIDINE HCL 0.1 MG TABLET PO SCH (21:26)
[2018-07-26] MEDS: NORMAL SALINE 1000 ML 1,000 ML IV PRN ×2 (21:33→23:03)
[2018-07-26] MEDS ORDERED: MIRTAZAPINE 15 MG TABLET PO SCH (22:00)
[2018-07-27] MEDS: NORMAL SALINE 1000 ML 1,000 ML IV PRN ×2 (03:13→10:00)
[2018-07-27 06:55] LABS: ALANINE AMINOTRANSFERASE 16 U/L (21-72); ALBUMIN 3.6 g/dL (3.5-5.0); ALKALINE PHOSPHATASE 82 U/L (38-126); ANION GAP 10 (5-19); ASPARTATE AMINO TRANSFERASE 13 U/L (17-59); BILIRUBIN,DIRECT 0.2 mg/dL (0.0-0.4); BILIRUBIN,TOTAL 0.4 mg/dL (0.2-1.3); BLOOD UREA NITROGEN 12 mg/dL (7-20); CALCIUM 8.4 mg/dL (8.4-10.2); CARBON DIOXIDE 25 mmol/L (22-30); CHLORIDE 110 mmol/L (98-107); GLUCOSE 92 mg/dL (75-110); POTASSIUM 4.1 mmol/L (3.6-5.0); SODIUM 144.5 mmol/L (137-145); TOTAL PROTEIN 5.7 g/dL (6.3-8.2)
[2018-07-27] MEDS: DOCUSATE SODIUM 100 MG CAPSULE PO SCH (09:13)
[2018-07-27] MEDS: VENLAFAXINE HCL 37.5 MG CAP.SR.24H PO SCH (09:14)
[2018-07-27] MEDS: ENOXAPARIN SODIUM INJ 40 MG/0.4 ML DISP.SYRIN SUBCUT SCH (09:15)
[2018-07-27 11:11] VITALS: BP 116/67
--- NOTE | 2018-07-27 12:37 | PDOC DISCHARGE SUMMARY ---
General - Admit/Disc Date/PCP Admission Date/Primary Care Provider: 07/23/18 12:37 Discharge Date: 07/27/18 - Discharge Diagnosis (1) Acute renal injury Is this a current diagnosis for this admission?: Yes (2) Vomiting Is this a current diagnosis for this admission?: Yes (3) PTSD (post-traumatic stress disorder) Is this a current diagnosis for this admission?: Yes (4) Insomnia Is this a current diagnosis for this admission?: Yes - Additional Information Discharge Diet: As Tolerated Discharge Activity: Activity As Tolerated Prescriptions: Mirtazapine [Remeron 15 mg Tablet] 15 mg PO QHS 30 Days #30 tablet Home Medications: Buspirone HCl [Buspar 10 mg Tablet] 10 mg PO Q12 07/21/18 Clonidine HCl [Catapres 0.1 mg Tablet] 0.1 mg PO QHS 07/21/18 Dextroamphetamine/Amphetamine [Adderall 10 mg Tablet] 10 mg PO QAM 07/21/18 Dronabinol [Marinol 2.5 mg Capsule] 2.5 mg PO TID 07/21/18 Olanzapine [Zyprexa 2.5 mg Tablet] 2.5 mg PO Q12 07/21/18 Venlafaxine HCl ER [Effexor Xr 37.5 mg Cap.sr] 37.5 mg PO Q12 07/21/18 Mirtazapine [Remeron 15 mg Tablet] 15 mg PO QHS 30 Days #30 tablet 07/27/18 History of Present Illness History of Present Illness: TORO SAINZ is a 37 year old male Hospital Course Hospital Course: (1) Acute renal injury FENa 0.33%. Nonoliguric. Likely prerenal caused by dehydration. Creatinine 1.38 down from. Renal ultrasound unremarkable. Nephrology okay to discharge patient home to follow-up with nephrology in 1 week. Was asked to do labs before seeing Dr. Moyer as outpatient. Also has appointment with Dr. Cam his PCP on 08/01/2018. RF, hepatitis panel, HIV negative (2) Vomiting Resolved. (3) PTSD (post-traumatic stress disorder) Psych meds on hold as per psychiatrist recommendation. Was asked to resume his psych meds and follow-up with psych. (4) Insomnia Improved. Was discharged on mirtazapine 15 mg p.o. nightly. Follow-up with on 08/01/2018. Physical Exam Vital Signs: Temp Pulse Resp BP Pulse Ox 97.9 F 51 L 18 116/67 96 07/27/18 11:10 07/27/18 11:10 07/27/18 11:10 07/27/18 11:10 07/27/18 11:10 Intake & Output 07/26/18 07/27/18 07/28/18 06:59 06:59 06:59 Intake Total 5260 3612 1000 Balance 5260 3612 1000 Weight 95.5 kg 97.4 kg General appearance: PRESENT: no acute distress, well-developed, well-nourished Head exam: PRESENT: atraumatic, normocephalic Neck exam: ABSENT: carotid bruit, JVD, lymphadenopathy, thyromegaly Respiratory exam: PRESENT: clear to auscultation jayme. ABSENT: rales, rhonchi, wheezes Cardiovascular exam: PRESENT: RRR. ABSENT: diastolic murmur, rubs, systolic murmur Extremities exam: PRESENT: full ROM. ABSENT: calf tenderness, clubbing, pedal edema Neurological exam: PRESENT: alert, awake, oriented to person, oriented to place, oriented to time, oriented to situation, CN II-XII grossly intact. ABSENT: motor sensory deficit Psychiatric exam: PRESENT: appropriate affect, normal mood. ABSENT: homicidal ideation, suicidal ideation Results Laboratory Results: 07/26/18 06:02 07/27/18 06:03 07/27/18 06:03 Sodium 144.5 Potassium 4.1 Chloride 110 H Carbon Dioxide 25 Anion Gap 10 BUN 12 Creatinine 1.67 H Est GFR ( Amer) 57 L Est GFR (Non-Af Amer) 47 L Glucose 92 Calcium 8.4 Total Bilirubin 0.4 AST 13 L ALT 16 L Alkaline Phosphatase 82 Total Protein 5.7 L Albumin 3.6 07/21/18 08:07 Creatine Kinase 71 Impressions: Abdomen/Pelvis CT 07/21/18 08:00 IMPRESSION: No noncontrast CT findings to explain right-sided abdominal pain, nausea, or vomiting. No evidence of urinary tract calculus. Normal appendix. Renal Ultrasound 07/22/18 00:00 IMPRESSION: Normal renal sonogram. Qualifiers - * PATIENT BEING DISCHARGED WITH ANY OF THE FOLLOWING DIAGNOSIS: No
== END 2018-07-27 11:49 | disposition home or self-care (01) | DRG 684 ==
LOC: ER 07:23 → INTOOBSV 11:31 → EH 11:31 → 3S 14:50 → OBSVTOIN 07-23 12:37
PROVIDERS: ADMIT Internal Medicine; ATTEND Internal Medicine
DX: N17.9 Acute kidney failure, unspecified (principal); F43.10 Post-traumatic stress disorder, unspecified; F32.9 Major depressive disorder, single episode, unspecified; G47.00 Insomnia, unspecified; E86.0 Dehydration; Z88.6 Allergy status to analgesic agent; Z79.899 Other long term (current) drug therapy; Z87.820 Personal history of traumatic brain injury; Z83.3 Family history of diabetes mellitus; Z80.8 Family history of malignant neoplasm of other organs or systems; Z81.8 Family history of other mental and behavioral disorders
CPT/HCPCS: 36415; 74176; 76770; 80048; 80053; 80074; 80307; 81001; 82550; 82570; 83690; 83735; 84300; 85025; 85027; 86225; 86235; 86430; 86701; 89190; 96361; 96374; 96375; 99285; G0378; J1885; J2405; J3490; J7030; J7120

== ENCOUNTER → 2018-08-02 | Outpatient (CLI) | payer MEDICARE, OTHER ==
[2018-08-02 15:05] LABS: ANION GAP 11 (5-19); BLOOD UREA NITROGEN 15 mg/dL (7-20); CALCIUM 9.5 mg/dL (8.4-10.2); CARBON DIOXIDE 28 mmol/L (22-30); CHLORIDE 105 mmol/L (98-107); GLUCOSE 91 mg/dL (75-110); POTASSIUM 4.5 mmol/L (3.6-5.0)
== END ==
LOC: OD 13:57
PROVIDERS: ATTEND Internal Medicine Nephrology
DX: N17.9 Acute kidney failure, unspecified (principal)
CPT/HCPCS: 36415; 80048